=== PATIENT | female | born 1980 | race Caucasian/White ===

== ENCOUNTER 2019-04-07 06:52 | Day surgery (SDC) | payer SELFPAY ==
[2019-04-06 11:43] VITALS: BMI 30.9
--- NOTE | 2019-04-06 12:06 | P.ANES_ITS ---
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 \zacarias 1 month, changed cholesterol stress test 12/11 negative GI: GI: GERD Comments: well controlled Metabolic: Metabolic: Thyroid Anesthetic Plan: ASA status: II PFS Anesthesia PFSH: Medical History (Updated 04/04/19 @ 18:42 by Rex Ramirez MD) Bipolar disorder (Acute) Chronic obstructive pulmonary disease (Acute) Coronary artery disease (Acute) Patient had RI with stent placement in 02/2017 Hyperlipidemia (Acute) Hypertension (Acute) Ischemic cardiomyopathy (Acute) Nondiabetic gastroparesis (Acute) Surgical History (Updated 04/04/19 @ 18:13 by Rex Ramirez MD) S/P chest tube placement (Acute 09/08/08) Diagnoses: Right primary spontaneous pneumothorax. Performed by Dr. Patel at [facility] in [place], [place] S/P cholecystectomy (Acute ~02/2004) S/P dilation and curettage (Acute 12/16/01) Treatment of miscarriage in second trimester. Performed by Dr. Rex Ramirez at [facility] and [place], [place] S/P tonsillectomy and adenoidectomy (Acute ~1994) Age 15 S/P tubal ligation (Acute 04/12/15) Hysteroscopic sterilization with Essure. Performed by Dr. Rex Ramirez [facility] in [place], [place] Social History (Updated 04/04/19 @ 18:15 by Rex Ramirez MD) Smoking and tobacco status: current every day smoker cigarettes Packs smoked per day: 1.5 [ Other cigarette details: Most smoked 2 ppd. Started age 16 ] Quit status (tobacco): not considering quitting Second hand smoke exposure: Yes Alcohol intake: never Substance/Drug Use: current Substance/Drug use frequency: few times a week Substance/Drug use type: Marijuana Other substance/drug use details: 1-2 times weekly Desire information about substance/drug rehabilitation?: No Counseling given: No Female Reproductive History: Para: 2 (0020) Spontaneous abortions: Yes Data Anesthesia Cardiac Studies: No Data to Display
[2019-04-07] VITALS (8 sets, daily range): BP systolic 107–128; BP diastolic 67–83; PULSE 54–80; RESP 10–18; TEMP 36.2–36.6; O2SAT 97–100
[2019-04-07] MEDS: sodium chloride 0.9% 1,000 ML 30 ML IV (07:43)
[2019-04-07] MEDS: ketorolac 30 mg/mL INJ IVP (07:47)
--- NOTE | 2019-04-07 08:55 | P.HPUD_ITS ---
H&P update H&P Update: DATE OF SURGERY/PROCEDURE: 04/07/19 DATE H&P PERFORMED: 11/11 H&P UPDATE INFORMATION: H&P completed within last 30 days, No changes to prior documentation and H&P is in [facility] on date indicated PREOP DIAGNOSIS: Vaginal Intraepithelial Neoplasia 2 PLANNED PROCEDURE: Operation Date: 04/07/19 08:25 Proposed Procedures p Laser Ablation/of vagina(Not Applicable) - Rex Ramirez MD Full H&P Medications/Allergies: Current Medications: Current Medications Generic Name Dose Route Start Last Admin Trade Name Freq PRN Reason Stop Dose Admin Sodium Chloride 1,000 mls @ 30 ml s/hr 04/07/19 07:15 04/07/19 07:43 Sodium Chloride 0.9% IV 04/08/19 07:14 30 mls/hr .Q24H FELIPE Administration Perinent History: Medical/Surgical History: Medical History (Updated 04/04/19 @ 18:42 by Rex Ramirez MD) Bipolar disorder (Acute) Chronic obstructive pulmonary disease (Acute) Coronary artery disease (Acute) Patient had GA with stent placement in 02/2017 Hyperlipidemia (Acute) Hypertension (Acute) Ischemic cardiomyopathy (Acute) Nondiabetic gastroparesis (Acute) Family History: Family History (Updated 03/20/19 @ 15:08 by Heike Cronin LPN) Grandmother Breast cancer Stroke Mother Heart disease Hypertension Diabetes Father Hypertension Social History: Social History Smoking and tobacco status: current every day smoker cigarettes Packs smoked per day: 1.5 [ Other cigarette details: Most smoked 2 ppd. Started age 16 ] Quit status (tobacco): not considering quitting Second hand smoke exposure: Yes Alcohol intake: never Desire information about substance/drug rehabilitation?: No Counseling given: No
--- NOTE | 2019-04-07 09:38 | SUR.OPER ---
lugol's solution [address] Ramirez Lot: [id number] EXP:01/11 acidic acid 10 ml used EXP: 06/21/19
--- NOTE | 2019-04-07 10:06 | P.OP_ITS ---
Operative Report Date of procedure: 04/07/19 Preop Diagnosis: Vaginal intraepithelial neoplasia 2 (VaIN 2) Post-op diagnosis: same Procedure Done: Colposcopy of the vagina with CO2 laser ablation (extensive) of the upper vagina Specimens removed/disposition: None Surgeon: Rex Ramirez Anesthesia: general Estimated blood loss (mL): 0 Complications: None Findings: Multiple genital warts and vaginal lesions of the upper vaginal sidewalls and fornices of the cervix noted. These ranged in size from 2 mm up to approximately 1 cm in diameter. No cervical lesions noted. Condition: stable Disposition: other (home) Procedure: DATE OF SURGERY: 04/07/2019 DATE OF DICTATION: 04/07/2019 TIME OF DICTATION: 10: 08 PREOPERATIVE DIAGNOSIS: Vaginal intraepithelial neoplasia 2 (VaIN 2) POSTOPERATIVE DIAGNOSIS: Vaginal intraepithelial neoplasia 2 PROCEDURE: Colposcopy of the vagina with CO2 laser ablation (extensive) of the upper vagina SURGEON: Rex Ramirez M.D. GENERAL UTILITY WORKER: None ANESTHESIA: General INDICATIONS: Patient is a 39-year-old 2, para 0-0-2-0 who is status post tubal ligation who had had a prior history of VaIN 2 which have been treated and 03/2018 by laser ablation. At her postoperative visit the area had healed well and there was no warts or lesions noted. She returned for a Pap smear on 01/16/2019 and during the Pap, was noted to have multiple growths of the upper vagina again. Biopsy of 1 of these showed VaIN 2 again. As a result, she is presenting for laser ablation again. PROCEDURE: Patient was taken to the operating room where general anesthesia was obtained. She was positioned in a dorsal supine position with legs in Hector style stirrups. Sequential compression boots were placed prior to starting the case. Patient voided prior to coming to the operating room. Patient was draped with wet towels. Non-reflective laser instruments were used. Speculum was placed in the vagina and acetic acid applied to the upper vagina. Multiple wartlike growths were noted around the upper vagina, mainly located on the left and right sides of the upper vagina and fornices. These extended down the left side of the vagina as well. The largest lesion was approximately 1 cm in diameter with multiple smaller lesions noted. Lugol's solution was also applied further delineating other small lesions. No lower vaginal lesions noted. Using the CO2 laser, with settings between between 4 and 5 W continuous setting, the lesions were ablated throughout the upper vagina. This took approximately 20 minutes of treatment to completely ablate all of the lesions of the upper vagina. Patient tolerated well. ESTIMATED BLOOD LOSS: None INTRAVENOUS FLUIDS: See anesthesia record DRAINS: None SPECIMENS: None COMPLICATIONS: None FINDINGS: Multiple genital warts and vaginal lesions of the upper vaginal sidewalls and fornices of the cervix noted. These ranged in size from 2 mm up to approximately 1 cm in diameter. No cervical lesions noted. POSTOPERATIVE STATUS: The patient was transferred to the recovery room in satisfactory condition. DISPOSITION: Discharge to home when criteria was met. FOLLOWUP APPOINTMENT: Followup appointment is scheduled in my office on 04/23/2019. MEDICATIONS: Patient received prescriptions for: Metronidazole 500 mg, 2 tablets today and 2 tablets tomorrow morning. May resume normal home medications.
--- NOTE | 2019-04-07 10:10 | SUR.PHASEI ---
1008 PATIENT TO PACU AT THIS TIME VIA GURNEY FROM OR. RR EVEN AND UNLABORED. PATIENT NOTED TO BE SNORING, AIRWAY PATENT. PLACED ON SIMPLE MASK AT 8L, 100% SPO2.
--- NOTE | 2019-04-07 10:38 | SUR.PHASEI ---
1033 PATIENT TO OPS VIA GURNEY FROM PACU. PATIENT A/OX3. RR EVEN AND UNLABORED. RATES PAIN 4/10, ABDOMINAL CRAMPING.
[2019-04-07] MEDS: TRAMadol 50 mg Tablet PO (11:02)
--- NOTE | 2019-04-07 14:48 | ANE.PACU ---
 Inpatient post-anesthesia follow up: Airway intact: Yes Vital signs: Temperature 97.4 F Pulse Rate [Left] 63 Pulse Rate [Right Radial] 71 Respiratory Rate 18 Blood Pressure [Le ft Arm] 120/67 Pulse Oximetry 97 Oxygen Delivery Me thod Room Air Oxygen Flow Rate 8 Fraction of Inspir ed Oxygen Hydration adequate: Yes Nausea and vomiting: No Mental status: Baseline
== END 2019-04-07 11:29 | disposition home or self-care (01) ==
PROVIDERS: Family Provider Family Medicine; PCP Family Medicine; Visit Provider Obstetrics & Gynecology
PROC: (CPT 57065; principal; 2019-04-07 08:20)
DX: N90.1 Moderate vulvar dysplasia (principal); J44.9 Chronic obstructive pulmonary disease, unspecified; I25.10 Atherosclerotic heart disease of native coronary artery without angina pectoris; I25.2 Old myocardial infarction; Z95.5 Presence of coronary angioplasty implant and graft; I10 Essential (primary) hypertension; Z80.3 Family history of malignant neoplasm of breast; Z82.3 Family history of stroke; Z82.49 Family history of ischemic heart disease and other diseases of the circulatory system; Z83.3 Family history of diabetes mellitus; F17.210 Nicotine dependence, cigarettes, uncomplicated
CPT/HCPCS: 57065; 12345; 96374; J1100; J1885; J2001; J2250; J2405; J2704; J3010; J7030

== ENCOUNTER → 2019-05-21 14:51 | Outpatient (BNVA) | payer SELFPAY | PROVIDERS: Family Provider Family Medicine; PCP Family Medicine; Visit Provider Obstetrics & Gynecology | DX: R39.9 Unspecified symptoms and signs involving the genitourinary system (principal); R30.0 Dysuria | CPT/HCPCS: 81003; 87086 ==

== ENCOUNTER 2019-07-27 14:40 | Outpatient (CLI) | payer SELFPAY ==
[2019-07-27 15:13] LABS: Basophils # 0.1 10^3/uL (0.0-0.1); Basophils % 0.6 %; Eosinophils # 0.1 10^3/uL (0.0-0.8); Eosinophils % 0.6 %; Hematocrit 44.1 % (37.0-47.0); Hemoglobin 14.9 g/dL (11.5-15.3); Lymphocytes # 2.6 10^3/uL (0.8-4.8); Lymphocytes % 26.5 %; Mean Corpuscular HGB Conc 33.8 g/dL (30.0-36.0); Mean Corpuscular Volume 88.7 fL (81-99); Mean Platelet Volume 10.1 fL (7.4-10.4); Monocytes % 10.1 %; Nucleated Red Blood Cells % 0 %; Platelet Count 255 10^3/cmm (130-400); Red Blood Count 4.97 10^6/uL (4.1-5.3); Red Cell Distribution Width 11.7 % (12.1-15.1); White Blood Count 9.6 10^3/uL (4.0-10.0)
[2019-07-27 19:11] LABS: Alanine Aminotransferase < 5 U/L (0-33); Albumin Level 4.3 g/dL (3.5-5.2); Alkaline Phosphatase 83 IU/L (35-105); Anion Gap 16.3 (5-19); Aspartate Amino Transferase 11 U/L (0-32); Blood Urea Nitrogen 4 mg/dL (6-20); Calcium 9.7 mg/dL (8.5-10.5); Carbon Dioxide 21 mmol/L (22-29); Chloride 103 mmol/L (98-107); Cholesterol 180 mg/dL (0-200); Globulin 3.2 g/dL (1.3-4.6); Glomerular Filtration Rate 80.3 mL/min (90-130); Glucose 121 mg/dL (65-115); HDL Cholesterol 36 mg/dL (60-100); LDL Cholesterol Calculated 117 mg/dL (50-129); LDL HDL Ratio 3.25 RATIO (0.00-3.22); Osmolality Calculated 281 mOsm/kg (285-295); Potassium 3.3 mmol/L (3.5-5.1); Sodium 137 mmol/L (136-145); Thyroid Stimulating Hormone 1.48 uIU/mL (0.27-4.20); Total Bilirubin 0.3 mg/dL (0.15-1.2); Total Protein 7.5 g/dL (6.6-8.7); Triglycerides 134 mg/dL (0-150)
== END 2019-07-27 14:41 | disposition home or self-care (01) ==
LOC: LAB 14:42
PROVIDERS: Family Provider Family Medicine; PCP Family Medicine; Visit Provider Family Medicine
DX: I25.10 Atherosclerotic heart disease of native coronary artery without angina pectoris (principal); I10 Essential (primary) hypertension; D75.1 Secondary polycythemia
CPT/HCPCS: 36415; 80053; 80061; 84443; 85025

== ENCOUNTER → 2020-01-29 09:13 | Outpatient (BNVA) | payer SELFPAY | PROVIDERS: PCP Family Medicine; Visit Provider Obstetrics & Gynecology | DX: N89.1 Moderate vaginal dysplasia (principal) | CPT/HCPCS: 87624; 88175 ==

== ENCOUNTER → 2020-04-11 12:51 | Outpatient (BNVA) | payer SELFPAY | PROVIDERS: PCP Family Medicine; Referring Provider Internal Medicine Cardiovascular Disease; Visit Provider Internal Medicine | DX: E04.1 Nontoxic single thyroid nodule (principal); R00.2 Palpitations; R13.10 Dysphagia, unspecified | CPT/HCPCS: 99204 ==

== ENCOUNTER → 2020-09-16 08:10 | Outpatient (BNVA) | payer SELFPAY | PROVIDERS: PCP Family Medicine; Visit Provider Obstetrics & Gynecology | DX: R31.9 Hematuria, unspecified (principal); N76.0 Acute vaginitis; B35.6 Tinea cruris | CPT/HCPCS: 81000; 87491; 87591; 87661 ==

== ENCOUNTER → 2021-01-30 14:15 | Outpatient (BNVA) | payer MEDICAID, SELFPAY | PROVIDERS: PCP Family Medicine; Visit Provider Obstetrics & Gynecology | DX: Z12.4 Encounter for screening for malignant neoplasm of cervix (principal); B97.7 Papillomavirus as the cause of diseases classified elsewhere; R63.5 Abnormal weight gain | CPT/HCPCS: 83001; 84443; 87624 ==

== ENCOUNTER 2021-06-08 14:44 | Outpatient (CLI) | payer BC, SELFPAY ==
--- NOTE | 2021-06-08 14:54 | USCV_ITS ---
Lisa Fernández Age: 41 Gender: F : 1980 Exam Date: 06/08/2021 15:05 Ordering Phys: Devon Lynn XX Technologist: Shelby Montoya [place] [facility] [place]: H/O [place] WITH 1 STENT. BP: 115 / 75 HR: 71 Rhythm: Sinus Technical Quality: Adequate MEASUREMENTS (Male / Female) Normal Values 2D ECHO LV Diastolic Diameter PLAX 3.5 cm 4.2 - 5.9 / 3.9 - 5.3 cm LV Systolic Diameter PLAX 2.9 cm LV Chamber Size 3.0 cm IVS Diastolic Thickness 0.9 cm 0.6 - 1.0 / 0.6 - 0.9 cm IVS Systolic Thickness 1.4 cm LVPW Diastolic Thickness 1.2 cm 0.6 - 1.0 / 0.6 - 0.9 cm LVPW Systolic Thickness 1.4 cm RV Chamber Size 2.5 cm LVOT Diameter 2.0 cm LV Ejection Fraction 2D Teich 40.1 % LV Ejection Fraction MOD 2C 63.0 % LV Ejection Fraction 2C AL 63.3 % LA Diameter 2.0 cm LA Width 2.2 cm LA Height 3.4 cm RA Width 2.9 cm RA Height 3.1 cm Aorta at Sinotubular Diameter 2.8 cm M-MODE Aortic Annulus Diameter 1.6 cm LA Ao Ratio MM 0.6 MV E Point Septal Separation 0.4 cm DOPPLER AV Peak Velocity 104.0 cm/s LVOT Peak Velocity 89.0 cm/s AV Area Cont Eq vti 3.0 cm squared AV Area Cont Eq pk 2.7 cm squared MV Area PHT 4.4 cm squared Mitral E to A Ratio 1.6 MV E' Velocity 62.5 cm/s Mitral E to MV E' Ratio 8.9 Mitral E to LV E' Lateral Ratio 8.6 Mitral E to LV E' Septal Ratio 9.3 TR Peak Velocity 196.4 cm/s TR Peak Gradient 15.4 mmHg TR Mean Velocity 136.0 cm/s TR Mean Gradient 8.9 mmHg TR Velocity Time Integral 40.5 cm TV Peak E Velocity 67.0 cm/s PV Peak Velocity 65.0 cm/s RV Acceleration Time 0.2 s RV Ejection Time 0.4 s RV AcT/ET 0.5 FINDINGS Left Ventricle Normal left ventricular size. LV systolic function is normal with EF of 50-55%. No regional wall motion abnormalities. Normal diastolic function Right Ventricle The right ventricle is normal in size and function. Right Atrium The right atrium is normal in size. Left Atrium The left atrium is normal in size. Mitral Valve Structurally normal mitral valve without significant stenosis or prolapse. There is no mitral regurgitation. Aortic Valve Structurally normal aortic valve without significant sclerosis or stenosis. There is no aortic regurgitation. Tricuspid Valve Structurally normal tricuspid valve without significant stenosis or regurgitation. Insufficient TR jet to calculate RVSP Pulmonic Valve Not well visualized Pericardium Normal pericardium without effusion. Aorta Normal ascending aorta dimension. CONCLUSIONS LV systolic function is normal with EF of 50-55% Normal diastolic function No significant valvular heart disease Compared to prior echocardiogram from 03/11/2017, LV systolic function has improved and EF is 50-55% now Darron Greenwood MD (Electronically Signed) Final Date: 20 June 2021 12:37 S
== END 2021-06-08 14:45 | disposition home or self-care (01) ==
PROVIDERS: PCP Family Medicine; Visit Provider Family Medicine
DX: I25.2 Old myocardial infarction (principal); I25.118 Atherosclerotic heart disease of native coronary artery with other forms of angina pectoris
CPT/HCPCS: 93306

== ENCOUNTER → 2021-06-15 13:56 | Outpatient (BNVA) | payer BC, SELFPAY | PROVIDERS: PCP Family Medicine; Visit Provider Internal Medicine | DX: E04.1 Nontoxic single thyroid nodule (principal); R13.10 Dysphagia, unspecified; R00.2 Palpitations | CPT/HCPCS: 99214 ==

== ENCOUNTER → 2021-08-16 13:35 | Outpatient (BNVA) | payer BC, MEDICAID, SELFPAY | PROVIDERS: PCP Family Medicine; Visit Provider Internal Medicine | DX: E04.1 Nontoxic single thyroid nodule (principal); J38.7 Other diseases of larynx; R13.10 Dysphagia, unspecified; R00.2 Palpitations; R09.82 Postnasal drip; F17.210 Nicotine dependence, cigarettes, uncomplicated | CPT/HCPCS: 99214 ==

== ENCOUNTER → 2021-08-29 10:59 | Outpatient (BNVA) | payer BC, MEDICAID, SELFPAY | PROVIDERS: PCP Family Medicine; Visit Provider Otolaryngology | DX: R13.10 Dysphagia, unspecified (principal); J34.2 Deviated nasal septum; M26.623 Arthralgia of bilateral temporomandibular joint; E04.1 Nontoxic single thyroid nodule; F17.210 Nicotine dependence, cigarettes, uncomplicated | CPT/HCPCS: 31575; 99204 ==

== ENCOUNTER 2021-09-28 09:17 | Outpatient (CLI) | payer BC, MEDICAID, SELFPAY ==
--- NOTE | 2021-09-28 08:45 | US_ITS ---
WS: [id number] THYROID ULTRASOUND (TI-RADS CRITERIA) History: Follow-up nodule. Comparison: 03/09/2014 Technique: Ultrasound examination of the thyroid and adjacent soft tissues is performed. FINDINGS: Right lobe: 4.0 cm x 1.6 cm x 1.4 cm. Volume: 4.8 cm3. Normal size gland and echotexture. Again noted is a previous the described nodule in the mid lateral gland. See below. Lymph nodes: None. NODULE: 1 Size: 0.8 x 0.6 x 1.1 cm Location: Anterior mid lateral Composition: Mixed cystic and solid (1) Echogenicity: Hypoechoic (2) Shape: Not taller than wide (0) Margins: Smooth (0) Echogenic foci: None (0) ACR TI-RADS total points: 3 Left lobe: 4.4 cm x 1.4 cm x 1.1 cm. Volume: 3.5 cm3. Normal size and echotexture. No significant or dominant nodules are present. Lymph nodes: None. Isthmus: 0.2 cm. US/US thyroid 70148 Impression: TR3 Recommendation:This nodule has been present since 2013 with only slight increas e in size. As per the ACR TI-RADS recommendations no additional imaging is thou ght necessary.
== END 2021-09-28 09:18 | disposition home or self-care (01) ==
PROVIDERS: PCP Family Medicine; Visit Provider Internal Medicine
DX: R13.10 Dysphagia, unspecified (principal); R00.2 Palpitations; E04.1 Nontoxic single thyroid nodule
CPT/HCPCS: 76536

== ENCOUNTER → 2021-10-16 13:59 | Outpatient (BNVA) | payer BC, MEDICAID, SELFPAY | PROVIDERS: PCP Family Medicine; Visit Provider Internal Medicine | DX: E04.1 Nontoxic single thyroid nodule (principal); R00.2 Palpitations; R13.10 Dysphagia, unspecified; J38.7 Other diseases of larynx; R09.82 Postnasal drip; F17.210 Nicotine dependence, cigarettes, uncomplicated | CPT/HCPCS: 99214 ==

== ENCOUNTER 2022-04-27 08:55 | Outpatient (CLI) | payer BC, MEDICAID, SELFPAY ==
[2022-04-27 09:30] VITALS: BMI 35.4
--- NOTE | 2022-04-27 09:53 | NMCV_ITS ---
NM [place] perf SPECT r/s* [id number] Lisa Fernández Age: 42 Gender: F : 1980 Exam Date: 04/27/2022 09:53 Ordering Phys: Darron Greenwood M.D ([email or web address]) Technologist: ANAND Almaraz Exam Location: [facility] Indications: CHEST PAIN STRESS TEST Please see separate stress test report in [facility] for full findings IMAGE PROTOCOL Rest/Stress 1 Lexiscan Day Radiopharmaceutical Dose (mCi) Administration Site Administered by Rest: Tc-99m 10.7 IV ANAND Gonzales Sestamibi Stress:Tc-99m 32.6 IV ANAND Gonzales Sestamibi Rest: 27-Apr-2022 60 Discovery 630 Stress: 27-Apr-2022 30 Discovery 630 0.4mg Lexiscan. Images obtained in supine and prone position. SPECT RESULTS Technical Quality: Excellent Raw Data Analysis: Normal Image Corrections: No attenuation or motion correction applied Summed Stress Score: 0 Summed Rest Score: 0 Summed Difference Score: 0 PERFUSION FINDINGS SPECT images demonstrate homogeneous tracer distribution throughout the myocardium. FUNCTIONAL RESULTS (calculated via Gated SPECT) Stress Image LV EF (%): 85 Stress EDV (mL):72 TID: 1.06 Stress ESV (mL):11 FUNCTIONAL FINDINGS: There is normal left ventricular systolic function. IMPRESSIONS 1. Normal myocardial perfusion imaging with no evidence of ischemia. 2. LV systolic function is normal Darron Greenwood MD (Electronically Signed) Final Date: 28 April 2022 10:21 S
--- NOTE | 2022-04-27 09:53 | ECG_ITS ---
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 Interpretive Statements NAME OF STUDY: LEXISCAN SESTAMIBI STRESS TEST INDICATION: [Chest Pain sob, ] Procedure: At the baseline, the blood pressure was 119/85 mmHg with a heart rate of 91 bpm. The electrocardiogram showed normal sinus rhythm, normal axis with normal ST and T's. The Lexiscan was infused over a period of 20 seconds. A total of 0.4 mg of Lexiscan was infused. The stress phase was continued for a total of 5 minutes. Heart rate was at the end of stress phase was 102 bpm and a blood pressure of 112/87 mmHg. The EKG at the peak infusion revealed normal sinus rhythm with no significant ST-T wave changes. Sestamibi was injected 20 seconds after the Lexiscan infusion. Blood pressure at the end of recovery phase was 137/87 mmHg with a heart rate of 96 bpm. Conclusion: 1. Normal EKG response to Lexiscan infusion 2. No Lexiscan induced chest pain or cardiac arrhythmia. 3. Normal blood pressure and heart rate response. 4. Sestamibi/sestamibi perfusion scan pending; see separate report. Electronically Signed On 05-19-2022 22:58:58 SIZER MACHINE by Darron Greenwood M.D. [id number]
[2022-04-27] MEDS: regadenoson 0.4 Mg/5 ml Syringe IVP (11:26)
[2022-04-27 11:37] VITALS: BP 137/87; PULSE 90
== END 2022-04-27 08:56 | disposition home or self-care (01) ==
PROVIDERS: PCP Family Medicine; Visit Provider Internal Medicine
DX: R07.9 Chest pain, unspecified (principal); R06.02 Shortness of breath
CPT/HCPCS: 36415; 78452; 93017; 96374; A9500; J2785

== ENCOUNTER 2022-06-27 08:54 | Outpatient (CLI) | payer BC, MEDICAID, SELFPAY ==
--- NOTE | 2022-06-27 09:05 | US_ITS ---
WS: [id number] ULTRASOUND THYROID FNA CLINICAL INFORMATION: E04.1 - Nontoxic single thyroid nodule TECHNIQUE: Ultrasound-guided FNA FINDINGS: The procedure including risks, benefits, and complications were discussed with the patient who agreed to proceed. Timeout was performed. Using sterile technique patient was prepped and draped in usual sterile fashion. After 1% lidocaine, using ultrasound guidance, a 25-gauge needle was advanc ed into the RIGHT thyroid nodule. 4 passes were made with active aspiration. Pathology was present fo r slide preparation. No immediate complications. Patient remained in the ultrasound suite 10 minutes postprocedure with intermittent ultrasound to ens ure no hematoma. No hematoma 10 minutes postprocedure. US/US biopsy/FNA thyroid [id number] IMPRESSION: 1. Uncomplicated ultrasound-guided thyroid FNA 2. Cytology is pending.
== END 2022-06-27 08:55 | disposition home or self-care (01) ==
LOC: RAD 08:57
PROVIDERS: PCP Family Medicine; Visit Provider Internal Medicine
DX: E04.1 Nontoxic single thyroid nodule (principal); R13.10 Dysphagia, unspecified; J38.7 Other diseases of larynx; R49.0 Dysphonia
CPT/HCPCS: 10005; 88173

== ENCOUNTER 2022-09-18 14:25 | Outpatient (CLI) | payer BC, MEDICAID, SELFPAY ==
--- NOTE | 2022-09-18 14:31 | MM_ITS ---
WS: [id number] BILATERAL 3D TOMOSYNTHESIS DIGITAL SCREENING MAMMOGRAPHY WITH CAD CLINICAL INFORMATION: Z12.31 - Encounter for screening mammogram for malignant ... HISTORY: Screening mammogram. No current complaints. COMPARISON: None. TECHNIQUE: Bilateral CC and MLO views. FINDINGS: Scattered fibroglandular densities bilaterally. No suspicious focal mass, asymmetry, calcifications, or architectural distortion. No evidence of malignancy. MM/[place] [address] IMPRESSION: BI-RADS: 1-Negative FOLLOW UP: 1 Year Follow-up Recommend return to annual screening mammography.
== END 2022-09-18 14:26 | disposition home or self-care (01) ==
LOC: RAD 14:28
PROVIDERS: PCP Family Medicine; Visit Provider Family Medicine
DX: Z12.31 Encounter for screening mammogram for malignant neoplasm of breast (principal)
CPT/HCPCS: 77063; 77067

== ENCOUNTER 2023-02-26 12:27 | Outpatient (CLI) | payer BC, MEDICAID, SELFPAY ==
--- NOTE | 2023-02-26 12:45 | US_ITS ---
WS: [id number] THYROID ULTRASOUND HISTORY: Thyroid Nodule COMPARISON: 09/28/2021 Right lobe: 1.9 cm x 1.7 cm x 4.4 cm (w x ap x l). Volume: 7.3 cm3. Normal sized gland. There is a predominately cystic nodule in the mid gland measuring 8 x 7 x 10 mm. No echogenic foci. This nodule was previously biopsied. This nodule appears more cystic today. Left lobe: 1.3 cm x 1.3 cm x 3.8 cm (w x ap x l). Volume: 3.3 cm3. Normal size and echotexture. No significant or dominant nodules are present. Isthmus: 0.2 cm. IMPRESSION: 1. Benign-appearing cystic nodule mid RIGHT thyroid. This nodule has undergone prior biopsy and appea rs more cystic today. No additional imaging necessary as per the TI-RADS and ACR criteria. 2. Negative LEFT thyroid.
== END 2023-02-26 12:28 | disposition home or self-care (01) ==
PROVIDERS: PCP Family Medicine; Visit Provider Internal Medicine
DX: E04.1 Nontoxic single thyroid nodule (principal)
CPT/HCPCS: 76536

== ENCOUNTER 2023-04-19 09:16 | Outpatient (CLI) | payer BC, MEDICAID, SELFPAY ==
--- NOTE | 2023-04-19 10:00 | FL_ITS ---
WS: [id number] FL barium swallow modifd 26584 REASON FOR EXAM: Difficulty swallowing. FLUOROSCOPY TIME: 1min [id number] # OF SPOT FILMS: None FINDINGS: Examination was supervised by the speech therapy department. Patient was examined in the sitting upright lateral position. Swallowing of varying consistency barium was monitored fluoroscopically and video recorded. A detailed report of the swallowing will be rendered by the speech therapy department. IMPRESSION: Modified barium swallow as above.
== END 2023-04-19 09:17 | disposition home or self-care (01) ==
LOC: RAD 09:17
PROVIDERS: PCP Family Medicine; Visit Provider Internal Medicine
DX: R13.10 Dysphagia, unspecified (principal)
CPT/HCPCS: 74230; 92611

== ENCOUNTER 2023-06-18 10:03 | Outpatient (RCR) | payer BC, MEDICAID, SELFPAY | END 2023-06-23 23:59 | disposition home or self-care (01) | LOC: SST 10:03 | PROVIDERS: PCP Family Medicine; Visit Provider Internal Medicine | DX: R13.10 Dysphagia, unspecified (principal) | CPT/HCPCS: 92610 ==

== ENCOUNTER → 2023-10-18 10:21 | Outpatient (BNVA) | payer BC, MEDICAID, SELFPAY | PROVIDERS: PCP Family Medicine; Visit Provider Nurse Practitioner Women's Health | DX: Z12.4 Encounter for screening for malignant neoplasm of cervix | CPT/HCPCS: 87624 ==

== ENCOUNTER 2024-02-12 09:58 | Outpatient (CLI) | payer BC, MEDICAID, SELFPAY ==
--- NOTE | 2024-02-12 10:03 | FL_ITS ---
WS: [id number] Exam: FL barium swallow modifd [id number] Date/Time of Exam: 02/12/2024 10:12 AM Reason For Exam: Other dysphagia Fluoroscopy time: 2min [id number] minutes # of spot films: 0 Modified barium swallow test was performed in conjunction with the speech therapy service. Oropharyngeal phase of swallowing was grossly normal. The patient tolerated all consistencies of misa um mixture foodstuffs without penetration or aspiration. The patient swallowed a barium tablet withou t difficulty. FL/FL barium swallow modifd 10477 IMPRESSION: 1. Unremarkable modified barium swallow test. A separate report with recommendations will follow from the speech therapy serv ice.
== END 2024-02-12 09:59 | disposition home or self-care (01) ==
LOC: RAD 09:58
PROVIDERS: PCP Family Medicine; Visit Provider Family Medicine
DX: R13.10 Dysphagia, unspecified (principal)
CPT/HCPCS: 74230; 92611

== ENCOUNTER 2024-06-22 08:09 | Outpatient (CLI) | payer BC, MEDICAID, SELFPAY ==
[2024-06-22 08:46] VITALS: BMI 38.4
--- NOTE | 2024-06-22 08:48 | NMCV_ITS ---
NM [place] perf SPECT r/s* [id number] Lisa Fernández Age: 44 Gender: F : 1980 Exam Date: 06/22/2024 09:18 Ordering Phys: Chai Melendez MD ([email or web address]) Technologist: ANAND Brown Exam Location: [facility] Indications: cp STRESS TEST Please see separate stress test report in [facility] for full findings IMAGE PROTOCOL Rest/Stress 1 Lexiscan Day Radiopharmaceutical Dose (mCi) Administration Site Administered by Rest: Tc-99m 10.2 IV ANAND Brown Sestamibi Stress:Tc-99m 32.8 IV ANAND Gonzales Sestamibi Rest: 22-Jun-2024 60 Discovery 630 Stress: 22-Jun-2024 30 Discovery 630 0.4mg Lexiscan.images obtained in supine and prone position. SPECT RESULTS Technical Quality: Good Raw Data Analysis: Normal Image Corrections: No attenuation or motion correction applied Summed Stress Score: 0 Summed Rest Score: 1 Summed Difference Score: 0 PERFUSION FINDINGS SPECT images demonstrate homogeneous tracer distribution throughout the myocardium. FUNCTIONAL RESULTS (calculated via Gated SPECT) Stress Image LV EF (%): 82 Stress EDV (mL):62 TID: 1.14 Stress ESV (mL):11 FUNCTIONAL FINDINGS: There is normal left ventricular systolic function. IMPRESSIONS 1. Normal myocardial perfusion imaging with no evidence of ischemia 2. LV systolic function is normal Darron Greenwood MD (Electronically Signed) Final Date: 25 June 2024 18:07 S
--- NOTE | 2024-06-22 08:48 | ECG_ITS ---
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 The perfusion scan will be documented separately. DATA: Baseline heart rate was 88 beats per minute. Baseline blood pressure was 104/72 millimeters of mercury. Target heart rate was 177. Maximum heart rate achieved was 113. which was 63 % of the predicted target heart rate. Maximum blood pressure was 119/83 millimeters of mercury. The reason for ending the test was completion of the protocol. The patient did not experience any symptoms. ELECTROCARDIOGRAM: BASELINE: Sinus rhythm. Normal axis. Interventricular conduction delay, otherwise, no ST-T changes suggestive of ischemia noted. No arrhythmia noted. EXERCISE: After Lexiscan injection, no ST-T changes suggestive of ischemic noted. No arrhythmia noted. CONCLUSION: Please note due to baseline abnormality of the EKG specificity and sensitivity of the EKG portion of LexiScan MIBI stress test will be low 1. EKG not suggestive of ischemia 2. Lexiscan injection unremarkable. 3. Perfusion scan will be documented separately. Electronically Signed On 07-06-2024 20:18:44 CDT by CHAI MELENDEZ [email or web address] [email or web address]
[2024-06-22] MEDS: regadenoson 0.4 Mg/5 ml Syringe IVP (09:42)
[2024-06-22 09:53] VITALS: BP 119/71; PULSE 85
--- NOTE | 2024-06-22 13:30 | USCV_ITS ---
Lisa Fernández Age: 44 Gender: F : 1980 Exam Date: 06/22/2024 10:53 Ordering Phys: Chai Melendez MD ([email or web address]) Technologist: BIB Exam Location: [facility] Indication: SOB, CP BP: 120 / 80 HR: 78 Rhythm: Sinus Technical Quality: Adequate MEASUREMENTS (Male / Female) Normal Values 2D ECHO LV Diastolic Diameter PLAX 4.6 cm 4.2 - 5.9 / 3.9 - 5.3 cm IVS Diastolic Thickness 0.8 cm 0.6 - 1.0 / 0.6 - 0.9 cm IVS Systolic Thickness 1.4 cm LVPW Diastolic Thickness 0.9 cm 0.6 - 1.0 / 0.6 - 0.9 cm LVPW Systolic Thickness 0.9 cm LVOT Diameter 2.0 cm LV Ejection Fraction 2D Teich 52.0 % LV Ejection Fraction MOD 4C 64.3 % LV Ejection Fraction MOD 2C 62.8 % LV Ejection Fraction 2C AL 61.9 % LA Diameter 2.9 cm RA Systolic Volume 4C AL 10.5 ml RA Systolic Volume 4C MOD 10.4 ml LA Sys Volume AL 18.7 cm cubed LA Sys Volume Index AL 8.8 cm cubed/m squared Aorta at Sinotubular Diameter 2.7 cm IVC Diameter 1.8 cm M-MODE LA Ao Ratio MM 1.2 AV Cusp Separation MM 1.0 cm DOPPLER AV Peak Velocity 111.0 cm/s LVOT Peak Velocity 105.0 cm/s AV Area Cont Eq vti 2.7 cm squared AV Area Cont Eq pk 2.9 cm squared MV Peak Velocity 82.0 cm/s MV Area PHT 3.7 cm squared Mitral E to A Ratio 0.7 TR Peak Velocity 79.0 cm/s TR Peak Gradient 2.5 mmHg PV Peak Velocity 88.0 cm/s FINDINGS Left Ventricle Normal left ventricular size, systolic function and wall thickness, with no regional wall motion abnormalities. Left ventricular ejection fraction is estimated at 60%.Grade I/IV diastolic dysfunction (abnormal relaxation filling pattern), normal to mildly elevated filling pressures. Right Ventricle The right ventricle is normal in size and function. Right Atrium The right atrium is normal in size. Left Atrium The left atrium is normal in size. Mitral Valve Structurally normal mitral valve without significant stenosis or prolapse. There is no mitral regurgitation. Aortic Valve Moderate aortic valve calcification. No aortic valve stenosis. Trace aortic valve regurgitation. Tricuspid Valve Trace tricuspid valve regurgitation. Pulmonic Valve Structurally normal pulmonic valve without significant stenosis. There is no pulmonic regurgitation. Pericardium Normal pericardium without effusion. Aorta Normal ascending aorta dimension. IVC The inferior vena cava appears normal. CONCLUSIONS Normal left ventricular size, systolic function and wall thickness, with no regional wall motion abnormalities. Left ventricular ejection fraction is estimated at 60%.Grade I/IV diastolic dysfunction (abnormal relaxation filling pattern), normal to mildly elevated filling pressures. Moderate aortic valve calcification. No aortic valve stenosis. Trace aortic valve regurgitation. There is no pericardial effusion. Right atrial pressure is around 5 mm of mercury. Chai Melendez MD (Electronically Signed) Final Date: 03 July 2024 20:18 S
== END 2024-06-22 08:10 | disposition home or self-care (01) ==
PROVIDERS: PCP Family Medicine; Visit Provider Internal Medicine Cardiovascular Disease
DX: R07.9 Chest pain, unspecified (principal); R06.02 Shortness of breath; R93.1 Abnormal findings on diagnostic imaging of heart and coronary circulation; I35.8 Other nonrheumatic aortic valve disorders
CPT/HCPCS: 36415; 78452; 93017; 93306; 96374; A9500; J2785

== ENCOUNTER 2024-10-02 12:50 | Inpatient (IN) | payer BC, SELFPAY ==
[2024-10-02] VITALS (28 sets, daily range): BP systolic 120–150; BP diastolic 84–102; PULSE 76–108; RESP 16–24; TEMP 36.4–37; O2SAT 89–100; BMI 35.6
--- NOTE | 2024-10-02 12:56 | ECG_ITS ---
[facility] Date: 2024-10-02 Pat Name: Lisa Fernández Department: Room: Gender: Female Safety Consultant: : 1980 Requested By: Carmela Lau Order Number: [id number] Johnson MD: Lance Noyola M.D. Measurements Intervals [place] Rate: 89 P: 79 DC: 146 QRS: -34 QRSD: 85 T: 67 QT: 358 QTc: 436 Interpretive Statements SINUS RHYTHM POSSIBLE LEFT ATRIAL ENLARGEMENT [-0.1mV P-WAVE IN V1/V2] LEFT AXIS DEVIATION [QRS AXIS < -30] LOW QRS VOLTAGE IN PRECORDIAL LEADS [QRS DEFLECTION < 1.0 mV IN CHEST LEADS] PATTERN CONSISTENT WITH PULMONARY DISEASE POSSIBLE RIGHT VENTRICULAR CONDUCTION DELAY [RSR (QR) IN V1/V2] Compared to ECG 03/27/2018 08:27:07 Left-axis deviation now present Low QRS voltage now present T-wave abnormality no longer present Electronically Signed On 10-02-2024 15:05:46 CDT by Lance Noyola M.D. [id number]
--- OUTSIDE RECORDS SUMMARY | 2024-10-02 12:56 | XMS_ITS | Encounter Summary ---
Author Organization [facility] Address [address] [place] [address] Care Team Providers Care Vice President Underwriting Name Role Phone Devon Lynn MD Primary Care Provider [phone] [phone] Encounter Details Date Type Department Care Team (Late st Contact Info) Description 05/27/2012 Ancillary Orders [facility] Admitting [address] [place] [address] Josi Le, WILLA Jane [address] [place], [place] [address] Neck pain (Primary Dx); Left arm numbness Social History Tobacco Use Types Packs/Day Years Used Date Smoking Tobacco: Every Day Cigarettes 1.5 15 Smokeless Tobacco: Never Comments:1 1/2 PPD Alcohol Use Standard Drinks/Week Comments No 0 (1 standard drink = 0.6 oz pur e alcohol) very occ Comments No Sex and Gender Information Value Date Recorded Sex Assigned at Not on file Legal 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 Gender Identity Not on file Sexual Orientation Not on file Occupation Industry Job Start Date Job End Date Not on file Not on file Not on file Not on file documented as of this encounter Plan of Treatment Not on file documented as of this encounter Results * XR CERVICAL SPINE 3 VIEWS OR LESS (05/27/2012 4:01 PM GAS BURNER OPERATOR) Anatomical Region Laterality Modality Spine Computed Radiogr aphy 05/27/2012 3:43 PM GAS BURNER OPERATOR Narrative 05/28/2012 7:34 AM GAS BURNER OPERATOR PROCEDURE CERVICAL SPINE SERIES, 3 views 27 May 2012 DESCRIPTION AP, lateral, and open-mouth odontoid views of the cervical spine were obtained. There is straightening of cervical lordosis, otherwise alignment is maintained. Vertebral body and disc space heights appear normal. No significant degenerative change is seen. On three attempted open-mouth odontoid views, no loss of alignment is seen. The dens and C-1 are partially obscured by the occiput, although no fracture is seen. IMPRESSION negative for fracture of the cervical spine Procedure Note Nghia Olivas MD - 05/28/2012 PROCEDURE CERVICAL SPINE SERIES, 3 views 27 May 2012 DESCRIPTION AP, lateral, and open-mouth odontoid views of the cervical spine were obtained. There is straightening of cervical lordosis, otherwise alignment is maintained. Vertebral body and disc space heights appear normal. No significant degenerative change is seen. On three attempted open-mouth odontoid views, no loss of alignment is seen. The dens and C-1 are partially obscured by the occiput, although no fracture is seen. IMPRESSION negative for fracture of the cervical spine Deangelo Prater Sr., [employer] G ORDERABLES Final Result documented in this encounter Visit Diagnoses Diagnosis Neck pain- Primary Cervicalgia Left arm numbness Disturbance of skin sensation Neck pain Cervicalgia Left arm numbness Disturbance of skin sensation documented in this encounter Care Teams Vice President Underwriting Relationship Specialty Start Date End Date Devon Lynn MD [address] [address] [place] [phone] PCP - General Family Practice 08/01/17 documented as of this encounter
--- OUTSIDE RECORDS SUMMARY | 2024-10-02 12:56 | XMS_ITS | Encounter Summary ---
Author Organization [facility] Address [address] [place] [address] Care Team Providers Care Access Control Officer Name Role Phone Devon Lynn MD Primary Care Provider [phone] [phone] Encounter Details Date Type Department Care Team (Late st Contact Info) Description 03/16/2014 Ancillary Orders [facility] Services [place] [address] [place] [address] Social History Tobacco Use Types Packs/Day Years Used Date Smoking Tobacco: Every Day Cigarettes 1.5 15 Smokeless Tobacco: Never Comments:1 1/2 PPD Alcohol Use Standard Drinks/Week Comments No 0 (1 standard drink = 0.6 oz pur e alcohol) Comments No Sex and Gender Information Value Date Recorded Sex Assigned at Not on file Legal Sex Female 4:53 AM DOCTOR OF PODIATRY Gender Identity Not on file Sexual Orientation Not on file Occupation Industry Job Start Date Job End Date Not on file Not on file Not on file Not on file documented as of this encounter Plan of Treatment Not on file documented as of this encounter Procedures Procedure Name Priority Date/Time Associated Diagnosis Comments T4 FREE Routine 03/16/2014 1:21 PM DOCTOR OF PODIATRY documented in this encounter Results * T4 FREE (03/16/2014 1:21 PM DOCTOR OF PODIATRY) T4 FREE 1.50 0.70 - 1.80 ng/dL 03/16/2014 1:44 PM DOCTOR OF PODIATRY [facility] Blood 03/16/2014 1:21 PM DOCTOR OF PODIATRY 03/16/2014 1:21 PM DOCTOR OF PODIATRY us External Provider Mtnv CHEMISTRY ORDERABLES Jacqueline l Result [facility] CLIA # [id number] [address] [address] documented in this encounter Visit Diagnoses Not on filedocumented in this encounter Care Teams Access Control Officer Relationship Specialty Start Date End Date Devon Lynn MD [address] [id number] PCP - General Family Practice 08/01/17 documented as of this encounter
--- OUTSIDE RECORDS SUMMARY | 2024-10-02 12:56 | XMS_ITS | Encounter Summary ---
Author Organization [facility] Address [address] [place] [address] Care Team Providers Care Policy Change Clerks Supervisor Name Role Phone Devon Lynn MD Primary Care Provider [phone] [phone] Encounter Details Date Type Department Care Team (Latest Contact Info) Description 02/02/[address] 

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
--- OUTSIDE RECORDS SUMMARY | 2024-10-02 12:56 | XMS_ITS | Encounter Summary ---
Author Organization [facility] Address [address] [place] [address] Care Team Providers Care Public Health Veterinarian Name Role Phone Devon Lynn MD Primary Care Provider [phone] [phone] Reason for Referral * Outpatient Services (Routine) - Closed Specialty Diagnoses / Procedures Referred By Contreji t Referred To Contact Diagnoses Neck pain Left arm numbness Procedures MRI CERVICAL WO CONTRAST Deangelo Prater Sr., FNP [address] [place] [address] Phone: tel: fax: [facility] [address] [place] [address] Phone: tel: fax: Referral ID Status Reason Start Date Expiration Date Visits Re quested Visits Authorized [id number] Closed 05/30/2012 06/30/2013 1 1 T PROTECTION GUARD Encounter Details Date Type Department Care Team (Latest Contact Info) Description 05/30/2012 Ancillary Orders [facility] Centralized Scheduling [address] [facility] [address] [place] [address] Deangelo Prater Sr., FNP [address] [place], [place] [address] Neck pain (Primary Dx); Left arm numbness Social History Tobacco Use Types Packs/Day Years Used Date Smoking Tobacco: Every Day Cigarettes 1.5 15 Smokeless Tobacco: Never Comments:1 / PPD Alcohol Use Standard Drinks/Week Comments No 0 (1 standard drink = 0.6 oz pur e alcohol) very occ Comments No Sex and Gender Information Value Date Recorded Sex Assigned at Not on file Legal 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 FINDINGS: Cervical vertebral bodies demonstrate normal height and signal intensity. No evidence of neoplastic or metastatic disease in the cervical spine. Pre- and paraspinous soft tissues unremarkable. Craniocervical junction within normal limits. Cervical spinal cord demonstrates normal caliber and signal intensity. C2-3, C3-4, C4-5, C5-6, C6-7 and C7-T1 discs are unremarkable. No focal disc protrusion/herniation. Neural foramina patent. No central spinal canal stenosis. No posterior facet joint degenerative arthropathy evident CONCLUSION: Unremarkable MRI cervical spine. [email or web address] - uploaded from [employer] - Procedure Note Finn Ramirez MD - 06/05/2012 MRI CERVICAL SPINE: Reason for study: Neck pain. FINDINGS: Cervical vertebral bodies demonstrate normal height and signal intensity. No evidence of neoplastic or metastatic disease in the cervical spine. Pre- and paraspinous soft tissues unremarkable. Craniocervical junction within normal limits. Cervical spinal cord demonstrates normal caliber and signal intensity. C2-3, C3-4, C4-5, C5-6, C6-7 and C7-T1 discs are unremarkable. No focal disc protrusion/herniation. Neural foramina patent. No central spinal canal stenosis. No posterior facet joint degenerative arthropathy evident CONCLUSION: Unremarkable MRI cervical spine. [email or web address] - uploaded from [employer] - Transcriptions Sgf Scanning, Him - 06/25/2012 11:58 AM CDT us Deangelo Prater Sr., HOST/HOSTESS GROUND MR ORDERABLES E dited documented in this encounter Visit Diagnoses Diagnosis Neck pain- Primary Cervicalgia Left arm numbness Disturbance of skin sensation Neck pain Cervicalgia Left arm numbness Disturbance of skin sensation documented in this encounter Care Teams Public Health Veterinarian Relationship Specialty Start Date End Date Devon Lynn MD [address] [address] PCP - General Family Practice 08/01/17 documented as of this encounter
--- OUTSIDE RECORDS SUMMARY | 2024-10-02 12:56 | XMS_ITS | Encounter Summary ---
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
--- OUTSIDE RECORDS SUMMARY | 2024-10-02 12:56 | XMS_ITS | Encounter Summary ---
Author Organization [facility] Address [address] [place] [address] Care Team Providers Care Medical Surgery Nurse Name Role Phone Devon Lynn MD Primary Care Provider [phone] [phone] Encounter Details Date Type Department Care Team (Latest Contact Info) Description 10/24/1999 Outpatient Historical [facility] Medicine [place] [address] [address] Teo Hitchcock MD [address] [phone] Temporomandibular joint disorders, unspecified (Primary Dx) Social History Tobacco Use Types Packs/Day Years Used Date Smoking Tobacco: Never Assessed Comments Unknown Sex and Gender Information Value Date Recorded Sex Assigned at Not on file Legal Sex Female 4:53 AM RN DOCUMENT IMPROVEMENT SPECIALIST Gender Identity Not on file Sexual Orientation Not on file documented as of this encounter Plan of Treatment Not on file documented as of this encounter Visit Diagnoses Diagnosis Temporomandibular joint disorders, unspecified- Primary documented in this encounter Care Teams Medical Surgery Nurse Relationship Specialty Start Date End Date Devon Lynn MD [address] [address] PCP - General Family Practice 08/01/17 documented as of this encounter
--- OUTSIDE RECORDS SUMMARY | 2024-10-02 12:56 | XMS_ITS | Encounter Summary ---
Author Organization [facility] Address [address] [place] [address] Care Team Providers Care Casting Inspector Name Role Phone Devon Lynn MD Primary Care Provider [phone] [phone] Encounter Details Date Type Department Care Team (Latest Contact Info) Description 05/08/1999 Outpatient Historical [facility] Medicine [place] [address] [address] Teo Hitchcock MD [address] [phone] Acute pharyngitis (Primary Dx); Acute bronchitis Social History Tobacco Use Types Packs/Day Years Used Date Smoking Tobacco: Never Assessed Comments Unknown Sex and Gender Information Value Date Recorded Sex Assigned at Not on file Legal Sex Female 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
--- OUTSIDE RECORDS SUMMARY | 2024-10-02 12:56 | XMS_ITS | Encounter Summary ---
Author Organization [facility] Address [address] [place] [address] Care Team Providers Care Varnish Inspector Name Role Phone Devon Lynn MD Primary Care Provider [phone] [phone] Encounter Details Date Type Department Care Team (Late st Contact Info) Description 06/07/2011 Ancillary Orders [facility] [address] [place] [address] Josi Le, WILLA Jane [address] [place] [address] Cough; Chest pain Social History Tobacco Use Types Packs/Day Years Used Date Smoking Tobacco: Every Day Cigarettes Comments:1 1/2 PPD Alcohol Use Standard Drinks/Week Comments No 0 (1 standard drink = 0.6 oz pur e alcohol) very occ Comments No Sex and Gender Information Value Date Recorded Sex Assigned at Not on file Legal Sex Female 4:53 AM COOK ENCHILADA Gender Identity Not on file Sexual Orientation Not on file Occupation Industry Job Start Date Job End Date Not on file Not on file Not on file Not on file documented as of this encounter Plan of Treatment Not on file documented as of this encounter Results * XR CHEST PA AND LATERAL (06/07/2011 3:28 PM CDT) Anatomical Region Laterality Modality Chest Computed Radiogr aphy 06/07/2011 3:20 PM CDT Narrative 06/08/2011 8:29 AM CDT Upright PA and left lateral chest views show mild hyperinflation. No pulmonary infiltrate or atelectasis is seen and no pleural effusion is evident. Cardio mediastinal silhouette appears normal. IMPRESSION no acute infiltrate or interval change seen scents 03 November 1999 Procedure Note Nghia Olivas MD - 06/08/2011 Upright PA and left lateral chest views show mild hyperinflation. No pulmonary infiltrate or atelectasis is seen and no pleural effusion is evident. Cardio mediastinal silhouette appears normal. IMPRESSION no acute infiltrate or interval change seen scents 03 November 1999 us Deangelo Prater Sr., [facility] ORDERABLES Final Result documented in this encounter Visit Diagnoses Diagnosis Cough Chest pain Chest pain, unspecified Cough Chest pain Chest pain, unspecified documented in this encounter Care Teams Varnish Inspector Relationship Specialty Start Date End Date Devon Lynn MD [address] [phone] PCP - General Family Practice 08/01/17 documented as of this encounter
--- OUTSIDE RECORDS SUMMARY | 2024-10-02 12:56 | XMS_ITS | Encounter Summary ---
Author Organization [facility] Address [address] [place] [address] Care Team Providers Care Thermometer Production Worker Name Role Phone Devon yLnn MD Primary Care Provider + -[phone] Encounter Details Date Type Department Care Team (Late st Contact Info) Description 06/07/2011 Ancillary Orders [facility] [address] [place] [address] Josi Le, WILLA Jane [address] [place], [place] [id number] Cough; Chest pain Social History Tobacco Use Types Packs/Day Years Used Date Smoking Tobacco: Every Day Cigarettes Comments:1 1/2 PPD Alcohol Use Standard Drinks/Week Comments No 0 (1 standard drink = 0.6 oz pur e alcohol) very occ Comments No Sex and Gender Information Value Date Recorded Sex Assigned at Not on file Legal Sex Female 4:53 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
--- OUTSIDE RECORDS SUMMARY | 2024-10-02 12:56 | XMS_ITS | Encounter Summary ---
Author Organization [facility] Address [address] [place] [address] Care Team Providers Care Conference Center Coordinator Name Role Phone Devon Lynn MD Primary Care Provider [phone] [phone] Encounter Details Date Type Department Care Team (Latest Contact Info) Description 10/10/1999 Outpatient Historical [facility] Medicine [place] [address] [address] Luis Felipe Morales DO NO ADDRESS ON FILE Temporomandibular joint disorders, unspecified (Primary Dx); Other specified hypoglycemia; Pain in joint, ankle and foot Social History Tobacco Use Types Packs/Day Years Used Date Smoking Tobacco: Never Assessed Comments Unknown Sex and Gender Information Value Date Recorded Sex Assigned at Not on file Legal Sex Female 4:53 AM RECRUITING INTERN Gender Identity Not on file Sexual Orientation Not on file documented as of this encounter Plan of Treatment Not on file documented as of this encounter Visit Diagnoses Diagnosis Temporomandibular joint disorders, unspecified- Primary Other specified hypoglycemia Pain in joint, ankle and foot documented in this encounter Care Teams Conference Center Coordinator Relationship Specialty Start Date End Date Devon Lynn MD [address] [phone] PCP - General Family Practice 08/01/17 documented as of this encounter
--- NOTE | 2024-10-02 13:12 | W.ED.CHESTPA ---
HPI - Chest Pain General: Chief Complaint: Chest Pain Stated Complaint: chest pressure Time Seen by Provider: 10/02/24 13:03 History of Present Illness: 44-year-old female presents emergency room with complaints of chest pain radiating to her back. She woke with the pain today at around 10 AM. She had been having more low back pain recently had an MRI some arthritic changes. No recent trauma. She has no history of blood clots but she does have a history of coronary disease had previously had stents placed in 2017. Associated shortness of breath with exertion no nausea vomiting or diarrhea no diaphoresis. Associated symptoms: Deny abdominal pain, dyspnea or fever(s) Related Data Home Medications ?Medication ?Instructions ?Recorded ?Confirmed alprazolam 0.25 mg tablet 0.25 mg PO BID PRN Anxiety 04/01/19 09/23/24 baclofen 20 mg tablet 20 mg PO QID 04/01/19 09/23/24 pantoprazole 40 mg tablet,delayed 40 mg PO BID 04/01/19 09/23/24 release prochlorperazine maleate 10 mg 10 mg PO ONCE PRN Chest Pain 04/01/19 09/23/24 tablet (Compazine) tramadol 50 mg tablet 50 mg PO BID PRN Nausea 04/01/19 09/23/24 cyanocobalamin (vitamin B-12) 1,000 mcg PO DAILY 02/11/20 09/23/24 1,000 mcg capsule cholecalciferol (vitamin D3) 1,250 50,000 unit PO .q7days 04/11/20 09/23/24 mcg (50,000 unit) capsule aspirin 81 mg tablet,delayed 162 mg PO DAILY 09/13/20 09/23/24 release magnesium oxide 400 mg PO DAILY 09/13/20 09/23/24 pseudoephedrine HCl 30 mg tablet 30 mg PO BID 06/15/21 09/23/24 Previous Rx's ?Medication ?Instructions ?Recorded clarithromycin 250 mg tablet 250 mg PO DAILY #90 tabs 05/31/20 furosemide 20 mg tablet 20 mg PO QAM PRN edema #90 tabs 04/05/21 nitroglycerin 0.4 mg sublingual 0.4 mg sublingual Q5M PRN Chest 04/05/21 tablet (Nitrostat) Pain #25 tabs potassium chloride 20 mEq 20 meq PO DAILY PRN Take with 04/05/21 tablet,extended Lasix #90 tabs release(part/cryst) (Klor-Con M) metoprolol tartrate 25 mg tablet 12.5 mg (1/2 x 25 mg) PO BID #90 05/21/23 tabs isosorbide mononitrate 30 mg 30 mg PO DAILY #90 tabs 05/07/24 tablet,extended release 24 hr Allergies Allergy/AdvReac Type Severity Reaction Status Date / Time atorvastatin Allergy Unknown unknown Verified 09/23/24 08:17 doxycycline Allergy vomiting, Verified 09/23/24 08:17 abdominal pain hydromorphone (From Dilaudid) Allergy anaphylaxis Verified 09/23/24 08:17 meperidine (From Demerol) Allergy hives, Verified 09/23/24 08:17 itching metoclopramide (From Reglan) Allergy uncontrolled Verified 09/23/24 08:17 tongue movement rosuvastatin Allergy wheezing Verified 09/23/24 08:17 and horsness Review of Systems Const: Denies: fever(s) or chills Card: Reports: chest pain Resp: Denies: dyspnea GI: Denies: abdominal pain : Denies: dysuria, urinary frequency or urinary urgency Musc: Denies: neck pain or back pain Skin/Breast: Denies: rash PFSH ED PFSH: Medical History Palpitation Thyroid nodule 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 Ramirez Bipolar disorder Chronic obstructive pulmonary disease Coronary artery disease Patient had LA with stent placement in 02/2017 Hypertension Ischemic cardiomyopathy Nondiabetic gastroparesis Hyperlipidemia Surgical History History of vaginal surgery (04/01/18) CO2 laser ablation of VaIN 2. [place] [facility]. History of vaginal surgery (04/07/19) CO2 laser ablation (extensive) of VaIN 2. [place] Ramirez [place] [facility] S/P tubal ligation (04/12/15) Hysteroscopic sterilization with Essure. Performed by Dr. Rex Ramirez [facility] in [place], [place] S/P chest tube placement (09/08/08) Diagnoses: Right primary spontaneous pneumothorax. Performed by Dr. Patel at [facility] in [place], [place] S/P cholecystectomy (~02/2004) S/P dilation and curettage (12/16/01) Treatment of miscarriage in second trimester. Performed by Dr. Rex Ramirez at [facility] and [place], [place] S/P tonsillectomy and adenoidectomy (~1994) Age 15 Family History Grandmother Breast cancer Stroke Mother Heart disease Hypertension Diabetes Hyperlipidemia Thyroid disease Father Hypertension Denies family history of Colon cancer Ovarian cancer Clotting disorder Anesthesia complication Bleeding disorder Uterine cancer Social History Smoking and tobacco/nicotine status: current every day tobacco/nicotine user Female Reproductive History: Para: 2 (0020) Spontaneous abortions: Yes Physical Exam Const: GENERAL APPEARANCE: cooperative ORIENTATION/CONSCIOUSNESS: Yes awake, Yes oriented to person, Yes oriented to place and Yes oriented to time HENMT: COMMON NORMALS: normocephalic, atraumatic and hearing grossly normal bilaterally HEAD & SCALP: normocephalic and atraumatic Resp: COMMON NORMALS: normal respiratory effort, No retractions, No use of accessory muscles and clear to auscultation bilaterally AUSCULTATION: clear to auscultation bilaterally Cardio: COMMON NORMALS: regular rate, regular rhythm and No murmurs present (Cardio) RATE: regular rate RHYTHM: regular rhythm GI: COMMON NORMALS: Soft to palpation and No hepatosplenomegaly present AUSCULTATION: Yes normoactive bowel sounds PALPATION: Yes Soft to palpation, No Tenderness to palpation present (GI), No Guarding due to palpation present (GI) and Yes No hepatosplenomegaly present Extremity: COMMON NORMALS: normal to inspection, capillary refill normal, no clubbing, cyanosis or edema, no calf tenderness and no pedal edema Neuro: SENSORIUM/ORIENTATION: Yes oriented to person, Yes oriented to place and Yes oriented to time Skin: COMMON NORMALS: no rashes or lesions noted GENERAL SKIN EXAM: no rashes or lesions noted Course Vital Signs: Vital signs: Vital Signs Temperature 97.5 F L 10/02/24 12:52 Pulse Rate 81 10/02/24 15:28 Respiratory Rate 16 10/02/24 12:52 Blood Pressure 139/91 10/02/24 15:28 Pulse Oximetry 94 10/02/24 15:28 Oxygen Delivery Me thod Room Air 10/02/24 12:52 MDM - Chest Pain Medical Records CONCLUSIONS Normal left ventricular size, systolic function and wall thickness, with no regional wall motion abnormalities. Left ventricular ejection fraction is estimated at 60%.Grade I/IV diastolic dysfunction (abnormal relaxation filling pattern), normal to mildly elevated filling pressures. Moderate aortic valve calcification. No aortic valve stenosis. Trace aortic valve regurgitation. There is no pericardial effusion. Right atrial pressure is around 5 mm of mercury. Jaylin Melendez MD (Electronically Signed) Final Date: 03 July 2024 CONCLUSION: Please note due to baseline abnormality of the EKG specificity and sensitivity of the EKG portion of LexiScan MIBI stress test will be low 1. EKG not suggestive of ischemia 2. Lexiscan injection unremarkable. 3. Perfusion scan will be documented separately. Electronically Signed On 07-06-2024 20:18:44 CDT by JAYLIN MELENDEZ Dictated By: Jaylin Melendez MD 07/06/242019 Lab Data I reviewed the patient's lab results. 10/02/24 14:24 10/02/24 14:24 Radiology Impressions Chest X-Ray 10/02/24 14:03 IMPRESSION: 1. Negative chest. Laboratory Results WBC 9.84 10^3/uL (3.29-11.43) 10/02/24 14:24 RBC 5.40 10^6/uL (3.85-5.65) 10/02/24 14:24 Hgb 15.60 g/dL (11.27-16.99) 10/02/24 14:24 Hct 46.9 % (36-47) 10/02/24 14:24 MCV 86.9 fl (85-98) 10/02/24 14:24 MCH 28.9 pg (27-33) 10/02/24 14:24 MCHC 33.3 g/dL (30-55) 10/02/24 14:24 RDW 14.0 % (12.1-15.1) 10/02/24 14:24 Plt Count 259 10^3/cmm (157-399) 10/02/24 14:24 MPV 9.5 fL (7.4-10.4) 10/02/24 14:24 Neut % (Auto) 70.4 % 10/02/24 14:24 Lymph % (Auto) 18.7 % 10/02/24 14:24 Motley % (Auto) 8.4 % 10/02/24 14:24 Eos % (Auto) 1.5 % 10/02/24 14:24 Baso % (Auto) 0.6 % 10/02/24 14:24 Neut # (Auto) 6.92 10^3/uL (1.8-7.7) 10/02/24 14:24 Lymph # (Auto) 1.8 10^3/uL (0.8-4.8) 10/02/24 14:24 Motley # (Auto) 0.8 10^3/uL (0.2-0.9) 10/02/24 14:24 Eos # (Auto) 0.2 10^3/uL (0.0-0.8) 10/02/24 14:24 Baso # (Auto) 0.1 10^3/uL (0.0-0.1) 10/02/24 14:24 Nucleated RBC % (auto) 0 % 10/02/24 14:24 Nucleated RBCs # 0.0 /100WBC 10/02/24 14:24 Sodium 139 mmol/L (136-145) 10/02/24 14:24 Potassium 4.3 mmol/L (3.5-5.1) 10/02/24 14:24 Chloride 100 mmol/L (98-107) 10/02/24 14:24 Carbon Dioxide 24 mmol/L (22-29) 10/02/24 14:24 Anion Gap 19.3 (5-19) H 10/02/24 14:24 BUN 5 mg/dL (6-20) L 10/02/24 14:24 Creatinine 0.6 mg/dL (0.5-0.9) 10/02/24 14:24 GFR Calculation 109.1 mL/min (90-130) 10/02/24 14:24 Glucose 125 mg/dL (65-115) H 10/02/24 14:24 Calculated Osmolality 287 mOsm/kg (285-295) 10/02/24 14:24 Calcium 9.2 mg/dL (8.5-10.5) 10/02/24 14:24 Total Bilirubin 0.2 mg/dL (0.15-1.2) 10/02/24 14:24 AST 18 U/L (0-32) 10/02/24 14:24 ALT 10 U/L (0-33) 10/02/24 14:24 Alkaline Phosphatase 105 U/L (35-105) 10/02/24 14:24 Troponin T Baseline 67 ng/L (0-10) H 10/02/24 14:24 Troponin T 120 Minute 284.4 ng/L (0-10) H 10/02/24 16:12 Delta Troponin T 217.4 ABS# (0-10) H* 10/02/24 16:12 Total Protein 6.9 g/dL (6.6-8.7) 10/02/24 14:24 Albumin 4.1 g/dL (3.5-5.2) 10/02/24 14:24 Globulin 2.8 g/dL (1.3-4.6) 10/02/24 14:24 EKG Data EKG 1: Interpretation: October 02, 2024 EKG normal sinus rhythm rate of 89. Normal of 146. No acute ST changes noted. Discharge Plan Discharge Condition: Stable Prescriptions: No Action pantoprazole 40 mg tablet,delayed release (DR/EC) 40 mg PO BID baclofen 20 mg tablet 20 mg PO QID alprazolam 0.25 mg tablet 0.25 mg PO BID PRN (Reason: Anxiety) prochlorperazine maleate [Compazine] 10 mg tablet 10 mg PO ONCE PRN (Reason: Chest Pain) tramadol 50 mg tablet 50 mg PO BID PRN (Reason: Nausea) cholecalciferol (vitamin D3) 1,250 mcg (50,000 unit) capsule 50,000 unit PO .q7days Rx Instructions: weekly cyanocobalamin (vitamin B-12) 1,000 mcg capsule 1,000 mcg PO DAILY aspirin 81 mg tablet,delayed release (DR/EC) 162 mg PO DAILY magnesium oxide 400 mg magnesium capsule 400 mg PO DAILY furosemide 20 mg tablet 20 mg PO QAM PRN (Reason: edema) Qty: 90 3RF nitroglycerin [Nitrostat] 0.4 mg tablet, sublingual 0.4 mg SUBLINGUAL Q5M PRN (Reason: Chest Pain) Qty: 25 3RF potassium chloride [Klor-Con M20] 20 mEq tablet,ER particles/crystals 20 meq PO DAILY PRN (Reason: Take with Lasix) Qty: 90 3RF pseudoephedrine HCl 30 mg tablet 30 mg PO BID isosorbide mononitrate 30 mg tablet extended release 24 hr 30 mg PO DAILY Qty: 90 3RF clarithromycin 250 mg tablet 250 mg PO DAILY Qty: 90 3RF metoprolol tartrate 25 mg tablet 12.5 mg PO BID Qty: 90 0RF Rx Instructions: MUST MAKE APPOINTMENT AND BE SEEN FOR FURTHER REFILLS. Referrals: Devon Lynn [Primary Care Provider, Family Practice] Patient Instructions: Opioid Safety, Pain Management, Patient Portal & Susan Instructions Print Language: Ethiopian Coding Level of Care Code ED Virtual Office Assistant for Hayes Sahu
--- NOTE | 2024-10-02 14:03 | XR_ITS ---
WS: [id number] Exam: XR chest 1V portable [id number] Date/Time of Exam: 10/02/2024 2:05 PM Reason For Exam: Chest pain Comparison 04/17/2017. Lungs are fully expanded and clear. Normal cardiomediastinal silhouette. No pleural effusions. Unremarkable bony structures. XR/XR chest 1V portable [id number] IMPRESSION: 1. Negative chest.
[2024-10-02 14:29] LABS: Hematocrit 46.9 % (36-47); Hemoglobin 15.60 g/dL (11.27-16.99); Mean Corpuscular HGB Conc 33.3 g/dL (30-55); Mean Corpuscular Hemoglobin 28.9 pg (27-33); Mean Corpuscular Volume 86.9 fl (85-98); Nucleated Red Blood Cells % 0 %; Platelet Count 259 10^3/cmm (157-399); Red Blood Count 5.40 10^6/uL (3.85-5.65); White Blood Count 9.84 10^3/uL (3.29-11.43)
[2024-10-02 14:51] LABS: Alanine Aminotransferase 10 U/L (0-33); Albumin Level 4.1 g/dL (3.5-5.2); Alkaline Phosphatase 105 U/L (35-105); Blood Urea Nitrogen 5 mg/dL (6-20); Calcium 9.2 mg/dL (8.5-10.5); Carbon Dioxide 24 mmol/L (22-29); Chloride 100 mmol/L (98-107); Creatinine Clr Calc Pharmacy 129.6083; Globulin 2.8 g/dL (1.3-4.6); Glucose 125 mg/dL (65-115); Osmolality Calculated 287 mOsm/kg (285-295); Sodium 139 mmol/L (136-145); Total Protein 6.9 g/dL (6.6-8.7); Troponin(5th) Baseline 67 ng/L (0-10)
[2024-10-02 14:57] LABS: Anion Gap 19.3 (5-19); Aspartate Amino Transferase 18 U/L (0-32); Potassium 4.3 mmol/L (3.5-5.1)
[2024-10-02 16:42] LABS: Troponin 5 2HR 284.4 ng/L (0-10)
[2024-10-02 16:43] LABS: Troponin 5 2HR Delta 217.4 ABS# (0-10)
--- NOTE | 2024-10-02 16:43 | ECG_ITS ---
[facility]: 2024-10[facility]02 Pat Name: Lisa Fernández Department: Room: Gender: Female Claims Manager: : 1980 Requested By: Carmela Lau Order Number: [id number] Alex MD: Lance Noyola M.D. Measurements Intervals [place] Rate: 94 P: 117 [place]: 140 QRS: 234 QRSD: 86 T: 123 QT: 369 QTc: 463 Interpretive Statements SINUS RHYTHM ARM LEADS REVERSED [INVERTED P AND QRS IN I] Compared to ECG 10/02/2024 12:56:00 Poor R wave progression Left-axis deviation no longer present Electronically Signed On 10-07-2024 16:55:42 CDT by Lance Noyola M.D. [id number] [id number]
--- NOTE | 2024-10-02 16:50 | ECG_ITS ---
[facility]: 2024-10-02 Pat Name: Lisa Fernández Department: Room: Gender: Female Circulating Nurse: : 1980 Requested By: Carmela Lau Order Number: [id number] Alex MD: Lance Noyola M.D. Measurements Intervals [place] Rate: 94 P: 73 [place]: 138 QRS: -34 QRSD: 82 T: 71 QT: 358 QTc: 448 Interpretive Statements SINUS RHYTHM LEFT AXIS DEVIATION [QRS AXIS < -30] LOW QRS VOLTAGE IN PRECORDIAL LEADS [QRS DEFLECTION < 1.0 mV IN CHEST LEADS] ANTERIOR MYOCARDIAL INFARCTION , OF INDETERMINATE AGE [40+ ms Q WAVE AND/OR ST/T ABNORMALITY IN V3/V4] Compared to ECG 10/02/2024 16:43:16 Left-axis deviation now present Low QRS voltage now present Myocardial infarct finding now present Electronically Signed On 10-07-2024 16:53:34 CDT by Lance Noyola M.D. [id number]
[2024-10-02] MEDS: nitroglycerin 1 gm/inch oint Pkt 1 INCH TOPICAL (17:02)
[2024-10-02] MEDS: morphine 4 mg/mL SDV 1 mL 2 MG IVP (17:05)
--- NOTE | 2024-10-02 17:10 | P.HP_ITS ---
Providers/Chief Complaint 2 Primary Care Provider: Devon Lynn Chief Complaint: chest pressure History of Present Illness Lisa Fernández is a 44 year old female with past medical history of CAD, post PCI to LAD in 2017, hypertension, hyperlipidemia, bipolar disorder presents to the ER today because of chest pain which woke her up from her sleep today morning at around 10 AM. Patient states she has had a chronic back pain for which she is under evaluation by an orthopedic surgeon but today the pain was retrosternal radiating to bilateral shoulder blades and her back making her nauseous with an episode of vomiting. Patient states for last few weeks she has had daily chest pain in the evening for which she has required sublingual nitros but today the pain was not subsiding even with the nitro. She has had pain on exertion for last 3 to 4 days. In the ER she was found to have a delta troponin and was diagnosed of non-ST elevation IN. Cardiology was consulted patient was started on heparin drip and medicine team was consulted for further management. Review of Systems 2 General: Reports: 10 or more systems reviewed and unremarkable except in HPI and below Const: Denies: fever(s), chills, body aches, change in appetite, change in weight, malaise, night sweats, diaphoresis, change in sleep pattern, daytime sleepiness or snoring Eyes: Denies: change in vision, blurry vision, photophobia, eye discomfort or eye discharge ENMT: Denies: throat pain, enlarged tonsils, hoarseness, mouth pain, oral sores, dry mouth, tinnitus, nasal congestion or post nasal drip Card: Denies: chest pain, palpitations, irregular heart rhythm, edema, swelling of feet/ankles, lightheadedness, syncope, pre-syncope, dyspnea on exertion, orthopnea, leg pain with exertion or acrocyanosis Resp: Denies: dyspnea, productive cough, non-productive cough, wheezing, stridor, pain on inspiration, change in phlegm color, hemoptysis or chest congestion GI: Denies: abdominal pain, nausea, vomiting, hematemesis, coffee ground emesis, dysphagia, heartburn, diarrhea, constipation, bloating, GI cramping, change in bowel habits, pain on defecation, hematochezia or melena : Denies: flank pain, dysuria, urinary frequency, urinary urgency, urinary hesitancy, nocturia or hematuria Musc: Denies: neck pain, back pain, extremity pain, joint pain, joint swelling, joint redness, joint stiffness or limited range of motion Neuro: Denies: headache(s), numbness in extremities, weakness in extremities, sensory changes, lack of coordination, difficulty walking, frequent falls, dizziness, vertigo, confusion, Slurred speech present, difficulty communicating thoughts or seizure-like activity Psych: Denies: anxiety, depression, mood swings, panic attacks, hopelessness or irritability Endo: Denies: polyuria, polydipsia, tired all the time, cold intolerance, excessive sweating, flushing or heat intolerance Elkin/Lymph: Denies: easy bruising or easy bleeding All/Imm: Denies: tongue swelling, facial swelling or acute wheezing Medications/Allergies Home Medications ?Medication ?Instructions ?Recorded ?Confirmed ?Last Taken ?Type alprazolam 0.25 mg tablet 0.25 mg PO BID PRN Anxiety 0 04/01/19 09/23/24 04/07/19 06:00 History baclofen 20 mg tablet 20 mg PO QID 04/01/1904/06/19 20:00 History pantoprazole 40 mg tablet,delayed 40 mg PO BID 0 09/23/24 Unknown History release prochlorperazine maleate 10 mg 10 mg PO ONCE PRN Chest Pain 04/01/19 09/23/24 Unknown History tablet (Compazine) tramadol 50 mg tablet 50 mg PO BID PRN Nausea 11/1109/23/24 Unknown History cyanocobalamin (vitamin B-12) 1,000 mcg PO DAILY 02/1009/23/24 Unknown History 1,000 mcg capsule cholecalciferol (vitamin D3) 1,250 50,000 unit PO .q7d ays 04/11/20 09/23/24 Unknown History mcg (50,000 unit) capsule clarithromycin 250 mg tablet 250 mg PO DAILY #90 tabs 05/31/20 09/23/24 Unknown Rx aspirin 81 mg tablet,delayed 162 mg PO DAILY 09/13/20 09/23/24 Unknown History release magnesium oxide 400 mg PO DAILY 09/13/2005/19 Unknown History furosemide 20 mg tablet 20 mg PO QAM PRN edema #90 t abs 04/05/21 09/23/24 Unknown Rx nitroglycerin 0.4 mg sublingual 0.4 mg sublingual Q5M PRN Chest 04/05/21 09/23/24 Unknown Rx tablet (Nitrostat) Pain #25 tabs potassium chloride 20 mEq 20 meq PO DAILY PRN Take wit h 04/05/21 09/23/24 Unknown Rx tablet,extended Lasix #90 tabs release(part/cryst) (Klor-Con M) pseudoephedrine HCl 30 mg tablet 30 mg PO BID 06/15/21 09/23/24 Unknown History metoprolol tartrate 25 mg tablet 12.5 mg (1/2 x 25 mg) PO BID #90 05/21/23 09/23/24 Unknown Rx tabs isosorbide mononitrate 30 mg 30 mg PO DAILY #90 tabs 0 05/07/24 09/23/24 Unknown Rx tablet,extended release 24 hr Allergies Allergy/AdvReac Type Severity Reaction Status Date / Time atorvastatin Allergy Unknown unknown Verified 09/23/24 08:17 doxycycline Allergy vomiting, Verified 09/23/24 08:17 abdominal pain hydromorphone (From Dilaudid) Allergy anaphylaxis Verified 09/23/24 08:17 meperidine (From Demerol) Allergy hives, Verified 09/23/24 08:17 itching metoclopramide (From Reglan) Allergy uncontrolled Verified 09/23/24 08:17 tongue movement rosuvastatin Allergy wheezing Verified 09/23/24 08:17 and horsness PFSH Acute 2 PFSH: Medical History Palpitation Thyroid nodule 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 Ramirez Bipolar disorder Chronic obstructive pulmonary disease Coronary artery disease Patient had IN with stent placement in 02/2017 Hypertension Ischemic cardiomyopathy Nondiabetic gastroparesis Hyperlipidemia Surgical History History of vaginal surgery (04/01/18) CO2 laser ablation of VaIN 2. [place] [facility] [place] of vaginal surgery (04/07/19) CO2 laser ablation (extensive) of VaIN 2. [place]. [place] [facility] [place] S/P tubal ligation (04/12/15) Hysteroscopic sterilization with Essure. Performed by Dr. Rex Ramirez [facility] in [place], [place] S/P chest tube placement (09/08/08) Diagnoses: Right primary spontaneous pneumothorax. Performed by Dr. Patel at [facility] in [place], [place] S/P cholecystectomy (~02/2004) S/P dilation and curettage (12/16/01) Treatment of miscarriage in second trimester. Performed by Dr. Rex Ramirez at [facility] and [place], [place] S/P tonsillectomy and adenoidectomy (~1994) Age 15 Family History Grandmother Breast cancer Stroke Mother Heart disease Hypertension Diabetes Hyperlipidemia Thyroid disease Father Hypertension Denies family history of Colon cancer Ovarian cancer Clotting disorder Anesthesia complication Bleeding disorder Uterine cancer Social History Smoking and tobacco/nicotine status: current every day tobacco/nicotine user Female Reproductive History: Para: 2 (0020) Spontaneous abortions: Yes Vitals/I&O/Wt Last Vital Signs Temp 97.5 F L 10/02/24 12:52 Pulse 76 10/02/24 17:02 Resp 16 10/02/24 12:52 BP 127/86 10/02/24 17:02 Pulse Ox 94 10/02/24 15:28 O2 Del Method Room Air 10/02/24 12:52 10/02/24 10/02/24 10/02/24 06:59 14:59 22:59 Intake Total 0 / 0 Balance 0 / 0 Weight last 48 hrs Weight 91.172 kg Physical Exam 2 Narrative: General: No acute distress, AO x3, anxious HEENT: PERRLA, pupils bilaterally equal and reactive Chest: Normal vesicular breath sounds, no added sounds, equal good air entry bilaterally CVS: S1-S2 regular, no murmurs, no tachycardia, no gallops, no rubs Abdomen: Soft, nontender, no organomegaly, bowel sounds present Neuro: No focal deficits, no facial deformity, AO x3, power 5/5 in all limbs Data 10/02/24 14:24 10/02/24 14:24 A&P Assessment and plan 1. Non-ST elevation IN (NSTEMI): Positive delta troponin in 2 hours. Cycle troponin. Check limited echocardiogram, A1c, lipid panel. Aspirin 81 mg daily, continue with metoprolol. Increase dose to 25 mg twice daily. Continue with heparin drip. Cardiology consulted from the ER. Possible plan for angiogram in AM. N.p.o. after midnight. 2. Hypertension: Goal blood pressure less than 140/90 mmHg. Continue with home dose of metoprolol for now. Depending on A1c will plan to add LIZY/ARB or CCB. 3. Ischemic cardiomyopathy: Last echocardiogram from June 16 showed a normal EF with grade 1 diastolic dysfunction. Repeat echocardiogram as above. Plan: Full code Cardiac diet Protonix for PUD prophylaxis Heparin drip will be sufficient for DVT prophylaxis PDMP PDMP Reviewed: Not Reviewed Attestations 2 Medical Necessity Statement*: Admission for more than 2 midnights for management of non-ST elevation IN requiring ACS workup Diagnoses Non-ST elevation IN (NSTEMI) I21.4 Hypertension I10 Ischemic cardiomyopathy I25.5
[2024-10-02] MEDS: heparin drip 25,000 UNIT/500 ML PREMIX 26 UNIT IV (17:13)
[2024-10-02] MEDS: heparin 5,000 unit/mL INJ 1 mL IVP (17:15)
--- NOTE | 2024-10-02 17:23 | USCV_ITS ---
Lisa Fernández Age: 44 Gender: F : 1980 Exam Date: 10/02/2024 19:19 Ordering Phys: Frederic Springer MD Technologist: Teodoro Morales [place] [facility] [place]: nstemi BP: 120 / 84 HR: Rhythm: Sinus Technical Quality: Adequate MEASUREMENTS (Male / Female) Normal Values 2D ECHO LV Diastolic Diameter PLAX 4.3 cm 4.2 - 5.9 / 3.9 - 5.3 cm IVS Diastolic Thickness 0.8 cm 0.6 - 1.0 / 0.6 - 0.9 cm IVS Systolic Thickness 1.0 cm LVPW Diastolic Thickness 1.3 cm 0.6 - 1.0 / 0.6 - 0.9 cm LVPW Systolic Thickness 2.3 cm LVOT Diameter 2.0 cm LV Ejection Fraction 2D Teich 56.3 % LV Ejection Fraction MOD 4C 57.0 % LV Ejection Fraction MOD 2C 54.8 % LV Ejection Fraction 2C AL 54.4 % LA Diameter 3.2 cm RA Systolic Volume 4C AL 21.7 ml RA Systolic Volume 4C MOD 22.3 ml LA Sys Volume AL 14.7 cm cubed LA Sys Volume Index AL 7.1 cm cubed/m squared Aorta at Sinotubular Diameter 2.3 cm IVC Diameter 1.7 cm M-MODE LA Ao Ratio MM 1.2 AV Cusp Separation MM 1.7 cm FINDINGS Left Ventricle Right Ventricle Right Atrium Left Atrium Mitral Valve Aortic Valve Tricuspid Valve Pulmonic Valve Pericardium Aorta IVC CONCLUSIONS Technically limited quality echocardiogram. Limited echo performed to assess LV dysfunction. LV systolic function appears to be grossly mildly reduced with EF 45 to 50%. Significant hypokinesis of apical wall Darron Greenwood MD (Electronically Signed) Final Date: 02 October 2024 21:08 S
[2024-10-02 19:25] LABS: Iron 89 ug/dL (37-145); Thyroid Stimulating Hormone 1.00 uIU/mL (0.27-4.20); Vitamin B12 1209 pg/mL (232-1245)
[2024-10-02 20:09] LABS: Total Iron Binding Capacity 368 mcg/dl; Unsaturated Iron Binding 279 ug/dL (112-347)
[2024-10-02 20:18] LABS: Estmated Average Glucose 120; Hemoglobin A1C 5.8 % (4.0-6.0)
--- NOTE | 2024-10-02 21:13 | PM.CONSULT ---
Providers/Reason For Consult Consulting Physician/Specialty*: Darron Greenwood MD/ Cardiology Reason for Consult*: NSTEMI Requesting Physician: Dr Le Attending Physician: Frederic Springer MD Primary Care Provider: Devon Lynn History of Present Illness History of Present Illness Lisa Fernández is a 44 year old female with past medical history of coronary artery disease with prior LAD stent, hypertension who presented to hospital with back pain and chest discomfort. Chest pain started this morning. At time of my evaluation she is cold and clammy. EKG performed shows T wave inversions in anterior leads which is changed from last EKG. Troponin trended up from baseline of 67 to 870 at 6 hours. Review of Systems Const: Denies: fever(s) or chills Card: Reports: chest pain Resp: Denies: dyspnea GI: Denies: abdominal pain : Denies: dysuria, urinary frequency or urinary urgency Musc: Denies: neck pain or back pain Skin/Breast: Denies: rash Medications/Allergies Home Medications ?Medication ?Instructions ?Recorded ?Confirmed ?Last Taken ?Type alprazolam 0.25 mg tablet 0.25 mg PO BID PRN Anxiety 04/01/19 09/23/24 04/07/19 06:00 History baclofen 20 mg tablet 20 mg PO QID 04/01/19 09/23/24 04/06/19 20:00 History pantoprazole 40 mg tablet,delayed 40 mg PO BID 04/01/19 09/23/24 Unknown History release prochlorperazine maleate 10 mg 10 mg PO ONCE PRN Chest Pain 04/01/19 09/23/24 Unknown History tablet (Compazine) tramadol 50 mg tablet 50 mg PO BID PRN Nausea 04/01/19 09/23/24 Unknown History cyanocobalamin (vitamin B-12) 1,000 mcg PO DAILY 02/11/20 09/23/24 Unknown History 1,000 mcg capsule cholecalciferol (vitamin D3) 1,250 50,000 unit PO .q7days 04/11/20 09/23/24 Unknown History mcg (50,000 unit) capsule clarithromycin 250 mg tablet 250 mg PO DAILY #90 tabs 05/31/20 09/23/24 Unknown Rx aspirin 81 mg tablet,delayed 162 mg PO DAILY 09/13/20 09/23/24 Unknown History release magnesium oxide 400 mg PO DAILY 09/13/20 09/23/24 Unknown History furosemide 20 mg tablet 20 mg PO QAM PRN edema #90 tabs 04/05/21 09/23/24 Unknown Rx nitroglycerin 0.4 mg sublingual 0.4 mg sublingual Q5M PRN Chest 04/05/21 09/23/24 Unknown Rx tablet (Nitrostat) Pain #25 tabs potassium chloride 20 mEq 20 meq PO DAILY PRN Take with 04/05/21 09/23/24 Unknown Rx tablet,extended Lasix #90 tabs release(part/cryst) (Klor-Con M) pseudoephedrine HCl 30 mg tablet 30 mg PO BID 06/15/21 09/23/24 Unknown History metoprolol tartrate 25 mg tablet 12.5 mg (1/2 x 25 mg) PO BID #90 05/21/23 09/23/24 Unknown Rx tabs isosorbide mononitrate 30 mg 30 mg PO DAILY #90 tabs 05/07/24 09/23/24 Unknown Rx tablet,extended release 24 hr Allergies Allergy/AdvReac Type Severity Reaction Status Date / Time atorvastatin Allergy Unknown unknown Verified 09/23/24 08:17 doxycycline Allergy vomiting, Verified 09/23/24 08:17 abdominal pain hydromorphone (From Dilaudid) Allergy anaphylaxis Verified 09/23/24 08:17 meperidine (From Demerol) Allergy hives, Verified 09/23/24 08:17 itching metoclopramide (From Reglan) Allergy uncontrolled Verified 09/23/24 08:17 tongue movement rosuvastatin Allergy wheezing Verified 09/23/24 08:17 and horsness Current Medications Generic Name Dose Route Start Last Admin Trade Name Freq PRN Reason Stop Dose Admin Docusate Sodium 100 mg 10/02/24 18:39 10/02/24 20:22 Docusate Sodium 100 Mg Capsule PO Not Given BID FELIPE Heparin Sodium/Sodium Chloride 25,000 unit in 500 mls @ 0 mls/hr 10/02/24 17:00 10/02/24 17:13 Heparin Drip IV 14.26 unit/kg/hr CONT FELIPE 26 mls/hr Protocol Administration Per Protocol Sodium Chloride 1,000 mls @ 50 mls/hr 10/02/24 18:39 10/02/24 19:48 Sodium Chloride 0.9% IV 50 mls/hr .Q20H FELIPE Administration Metoprolol Tartrate 25 mg 10/02/24 18:39 10/02/24 19:47 Metoprolol Tartrate 25 Mg Tablet PO 25 mg BID FELIPE Administration Pantoprazole Sodium 40 mg 10/02/24 18:39 10/02/24 19:[address] 40 Mg Tablet PO 40 mg BID FELIPE Administration PFSH Acute PFSH: Medical History Palpitation Thyroid nodule 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 Ramirez Bipolar disorder Chronic obstructive pulmonary disease Coronary artery disease Patient had CT with stent placement in 02/2017 Hypertension Ischemic cardiomyopathy Nondiabetic gastroparesis Hyperlipidemia Surgical History History of vaginal surgery (04/01/18) CO2 laser ablation of VaIN 2. Performed by Dr. Ramirez at [facility] [place]. History of vaginal surgery (04/07/19) CO2 laser ablation (extensive) of VaIN 2. Performed by Dr. Ramirez at [facility] [place]. S/P tubal ligation (04/12/15) Hysteroscopic sterilization with Essure. Performed by Dr. Rex Ramirez [facility] in [place], [place] S/P chest tube placement (09/08/08) Diagnoses: Right primary spontaneous pneumothorax. Performed by Dr. Patel at [facility] in [place], [place] S/P cholecystectomy (~02/2004) S/P dilation and curettage (12/16/01) Treatment of miscarriage in second trimester. Performed by Dr. Rex Ramirez at [facility] and [place], [place] S/P tonsillectomy and adenoidectomy (~1994) Age 15 Family History Grandmother Breast cancer Stroke Mother Heart disease Hypertension Diabetes Hyperlipidemia Thyroid disease Father Hypertension Denies family history of Colon cancer Ovarian cancer Clotting disorder Anesthesia complication Bleeding disorder Uterine cancer Social History (Reviewed 10/02/24 @ 21:39 by Connor Bains Smoking and tobacco/nicotine status: current every day tobacco/nicotine user Female Reproductive History: Para: 2 (0020) Spontaneous abortions: Yes Vitals/I&O/Wt Last Vital Signs Temp 98.6 F 10/02/24 18:08 Pulse 102 H 10/02/24 18:40 Resp 16 10/02/24 15:00 BP 150/102 10/02/24 18:40 Pulse Ox 93 10/02/24 20:13 O2 Del Method Room Air 10/02/24 20:13 10/02/24 10/02/24 10/02/24 06:59 14:59 22:59 Intake Total 0 / 0 Balance 0 / 0 Weight last 48 hrs Weight 203 lb 8 oz Weight 201 lb Physical Exam Narrative: GENERAL: Patient is alert, awake and oriented x3. [] NECK: No jugular vein distension. [] HEENT: No cyanosis. No icterus. No pallor. [] HEART: Regular S1 and S2. No murmur, rub or gallop. [] LUNGS: Clear to auscultate bilaterally. [] CENTRAL NERVOUS SYSTEM: Grossly nonfocal. [] EXTREMITIES: Lower extremities with no edema bilaterally. Data 10/02/24 14:24 10/02/24 14:24 A&P Assessment and plan 1. Non-ST elevation CT (NSTEMI): 2. Hypertension: 3. Ischemic cardiomyopathy: 4. Smokin. Hyperlipidemia: Plan: Patient has presented with high risk NSTEMI. At time of my evaluation she is cold and clammy. Says chest pain has improved now. We will proceed with coronary angiogram with possible PCI On aspirin and heparin Echo was of limited quality showing mild LV dysfunction but significant hypokinesis of apical wall. Thank you for involving us with care of this patient. We will continue to follow. Please call with questions. PDMP PDMP Reviewed: Not Reviewed Consult Attestations Medical Necessity Statement: Care expected to cross 2 midnights. Patient has presented with high risk NSTEMI with ongoing symptoms. Coding Level of Care Code Acute Code for [facility] Fwd Diagnoses Non-ST elevation CT (NSTEMI) I21.4 Hypertension I10 Ischemic cardiomyopathy I25.5 Smoking F17.200 Hyperlipidemia E78.5
--- NOTE | 2024-10-02 21:20 | ECG_ITS ---
[email or web address] Test Date: 2024-10-02 Pat Name: Lisa Fernández Department: Room: [facility] Gender: Female Head Paper Tester: : 1980 Requested By: Darron Greenwood Order Number: [id number] Alex MD: Darron Greenwood M.D. Measurements Intervals [place] Rate: 89 P: 73 TN: 143 QRS: -21 QRSD: 105 T: 65 QT: 363 QTc: 443 Interpretive Statements SINUS RHYTHM ANTERIOR MYOCARDIAL INFARCTION , OF INDETERMINATE AGE [40+ ms Q WAVE AND/OR ST/T ABNORMALITY IN V3/V4] Compared to ECG 10/02/2024 16:50:47 Left-axis deviation no longer present Myocardial infarct finding still present Electronically Signed On 10-06-2024 14:59:09 CDT by Darron Greenwood M.D. [email or web address]
[2024-10-02 21:29] LABS: Troponin 5 6HR 876.5 ng/L (0-10)
[2024-10-02 21:30] LABS: Troponin 5 6HR Delta 809.5 ng/L (0-12)
--- NOTE | 2024-10-02 22:25 | W.PM.OPSUD ---
Surgery/Procedure H&P Update DATE OF PROCEDURE: October 02, 2024 DATE H&P PERFORMED: 10/02/24 H&P UPDATE INFORMATION: I have reviewed H&P completed within last 30 days, I have examined patient prior to procedure and No changes to prior documentation PREOP DIAGNOSIS: NSTEMI PRIMARY INDICATION FOR PROCEDURE: NSTEMI PLANNED PROCEDURE: Left heart cath with possible percutaneous coronary intervention PATIENT REASSESSED PRIOR TO SEDATION, WITH NO CHANGE NOTED: Yes PHYSICAL EXAM: alert, oriented x 3, clear to auscultation bilaterally and regular rate & rhythm AIRWAY EVAL/ANESTHESIA PLAN: normal airway, ASA III, Local Anesthesia, Risks, benefits & alternatives of sedation and/or procedure discussed and Patient agrees to continue as planned ADDITIONAL INFORMATION: Moderate sedation
--- NOTE | 2024-10-02 23:10 | PM.PROC ---
Procedure Note: Date of procedure: 10/02/24 Pre-procedure diagnosis: NSTEMI Post-procedure diagnosis: other (Total thrombotic occlusion of mid LAD stent s/p PCI with 1 stent) Procedure: Mid LAD stent has total thrombotic occlusion. Status post successful revascularization with balloon angioplasty and 1 stent placement. Aggrastat for 4 hours. We will load with brilinta 180mg. Continue aspirin Performing Provider: Darron Greenwood Estimated blood loss (mL): 10 Complications: None Condition: stable Disposition: ICU Coding Level of Care Code Acute Code for [facility]
[2024-10-03] VITALS (158 sets, daily range): BP systolic 104–156; BP diastolic 79–116; PULSE 66–105; RESP 13–28; TEMP 36.8–37.1; O2SAT 88–98
[2024-10-03] MEDS: morphine 4 mg/mL SDV 1 mL 2 MG IVP ×3 (02:16→14:07)
[2024-10-03 05:16] LABS: Hematocrit 39.0 % (36-47); Hemoglobin 13.20 g/dL (11.27-16.99); Mean Corpuscular HGB Conc 33.8 g/dL (30-55); Mean Corpuscular Hemoglobin 28.8 pg (27-33); Mean Corpuscular Volume 85.2 fl (85-98); Nucleated Red Blood Cells % 0 %; Platelet Count 225 10^3/cmm (157-399); Red Blood Count 4.58 10^6/uL (3.85-5.65); White Blood Count 11.14 10^3/uL (3.29-11.43)
[2024-10-03 05:36] LABS: Alanine Aminotransferase 18 U/L (0-33); Albumin Level 3.3 g/dL (3.5-5.2); Alkaline Phosphatase 87 U/L (35-105); Anion Gap 15.6 (5-19); Aspartate Amino Transferase 129 U/L (0-32); Blood Urea Nitrogen 7 mg/dL (6-20); Calcium 8.9 mg/dL (8.5-10.5); Carbon Dioxide 24 mmol/L (22-29); Chloride 102 mmol/L (98-107); Creatinine Clr Calc Pharmacy 156.5689; Globulin 2.7 g/dL (1.3-4.6); Glucose 110 mg/dL (65-115); Magnesium 1.7 mg/dL (1.7-2.3); Osmolality Calculated 285 mOsm/kg (285-295); Potassium 3.6 mmol/L (3.5-5.1); Sodium 138 mmol/L (136-145); Total Protein 6.0 g/dL (6.6-8.7)
[2024-10-03 06:18] LABS: Cholesterol 174 mg/dL (0-200); HDL Cholesterol 32 mg/dL (60-100); Triglycerides 183 mg/dL (0-150)
--- NOTE | 2024-10-03 08:24 | PM.PN ---
Subjective Subjective: Patient had PCI of mid LAD with 1 stent yesterday. She had total stent thrombosis. She is doing well. No chest pain. Vitals/I&O/Wt Last Vital Signs Temp 98.6 F 10/02/24 18:08 Pulse 86 10/03/24 06:19 Resp 18 10/03/24 06:19 BP 121/93 10/03/24 06:00 Pulse Ox 94 10/03/24 06:19 O2 Del Method Room Air 10/03/24 06:19 10/02/24 10/03/24 10/03/24 22:59 06:59 14:59 Intake Total 80 / 80 80 / 160 Output Total 200 / 200 Balance 80 / 80 -120 / -40 Weight last 48 hrs Weight 205 lb 0.478 oz Weight 203 lb 8 oz Weight 201 lb Physical Exam Narrative: GENERAL: Patient is alert, awake and oriented x3. [] NECK: No jugular vein distension. [] HEENT: No cyanosis. No icterus. No pallor. [] HEART: Regular S1 and S2. No murmur, rub or gallop. [] LUNGS: Clear to auscultate bilaterally. [] CENTRAL NERVOUS SYSTEM: Grossly nonfocal. [] EXTREMITIES: Lower extremities with no edema bilaterally. Urinary Catheter Management: Singer: Cath Placed During This Visit: yes Reason for Continuing Indwelling Catheter: Accurate Measurement of Urinary Output in Critically Ill Patients Urinary Catheter Date of Insertion: 10/03/24 Urinary Catheter Time of Insertion: 02:44 Data 10/04/24 03:23 10/04/24 03:23 A&P Assessment and plan 1. Non-ST elevation [place] (NSTEMI): 2. Hypertension: 3. Ischemic cardiomyopathy: 4. Smokin. Hyperlipidemia: Plan: Patient was found to have total stent thrombosis of prior LAD stent. Underwent successful revascularization with 1 stent. She is doing well. Continue aspirin and Brilinta. Thank you for involving us with care of this patient. We will continue to follow. Please call with questions. PDMP PDMP Reviewed: Not Reviewed Attestations Medical Necessity Statement*: Care expected to cross 2 midnights. Coding Level of Care Code Acute Code for [facility] Fwd Diagnoses Non-ST elevation [place] (NSTEMI) I21.4 Hypertension I10 Ischemic cardiomyopathy I25.5 Smoking F17.200 Hyperlipidemia E78.5
--- NOTE | 2024-10-03 13:18 | PC.NURSE ---
Groin cath access site soft, bruising noted. Patient is ambulating unit at this time with assistance.
--- NOTE | 2024-10-03 15:26 | P.PN_ITS ---
Subjective 2 Subjective: Underwent PCI overnight for mid LAD stent thrombotic occlusion. Today morning states she does not have any more chest pain but complaining of cold sweats which she attributes to possible withdrawal from her daily marijuana and Xanax use. Does have mild groin hematoma but seems to be resolving. Denies any discomfort. Vitals/I&O/Wt Last Vital Signs Temp 98.3 F 10/03/24 08:00 Pulse 84 10/03/24 13:15 Resp 18 10/03/24 14:07 BP 138/101 10/03/24 13:15 Pulse Ox 96 10/03/24 14:07 O2 Del Method Room Air 10/03/24 13:15 10/03/24 10/03/24 10/03/24 06:59 14:59 22:59 Intake Total 80 / 160 1165.833 / 1165.833 Output Total 200 / 200 250 / 250 Balance -120 / -40 915.833 / 915.833 Weight last 48 hrs Weight 93 kg Weight 92.306 kg Weight 91.172 kg Physical Exam 2 Narrative: General: No acute distress, AO x3, anxious HEENT: PERRLA, pupils bilaterally equal and reactive Chest: Normal vesicular breath sounds, no added sounds, equal good air entry bilaterally CVS: S1-S2 regular, no murmurs, no tachycardia, no gallops, no rubs Abdomen: Soft, nontender, no organomegaly, bowel sounds present Neuro: No focal deficits, no facial deformity, AO x3, power 5/5 in all limbs Urinary Catheter Management: Singer: Cath Placed During This Visit: yes Reason for Continuing Indwelling Catheter: Accurate Measurement of Urinary Output in Critically Ill Patients Urinary Catheter Date of Insertion: 10/03/24 Urinary Catheter Time of Insertion: 02:44 Data 10/03/24 05:06 10/03/24 05:06 A&P Assessment and plan 1. Non-ST elevation [place] (NSTEMI): Post PCI for mid LAD stent thrombotic occlusion. Appreciate cardiology recommendations. Appreciate echocardiogram with EF of 45 to 50% with apical hypokinesia. Appreciate A1c, lipid panel. Continue with aspirin, Brilinta, metoprolol 25 mg twice daily. 2. Primary hypertension: Goal blood pressure less than 140/90 mmHg. Continue with home dose of metoprolol for now. If blood pressure continues to remain elevated can start on low-dose losartan versus Entresto. 3. Ischemic cardiomyopathy: Appreciate echocardiogram with EF of 45 to 50% with apical hypokinesia. Watch for fluid overload. Plan: Full code Cardiac diet Protonix for PUD prophylaxis Heparin for DVT prophylaxis Transfer to [facility]. PDMP PDMP Reviewed: Not Reviewed Attestations 2 Medical Necessity Statement*: Requires further hospitalization for management of non-ST elevation [place] post PCI to LAD Diagnoses Non-ST elevation [place] (NSTEMI) I21.4 Primary hypertension I10 Hypertension type: primary hypertension Ischemic cardiomyopathy I25.5
[2024-10-03] MEDS: heparin 5,000 unit/mL INJ 1 mL 5000 UNIT SUBCUT (16:18)
[2024-10-04] VITALS (51 sets, daily range): BP systolic 113–142; BP diastolic 72–115; PULSE 79–104; RESP 16–27; TEMP 36.7; O2SAT 91–98
[2024-10-04] MEDS: morphine 4 mg/mL SDV 1 mL 2 MG IVP (02:46)
[2024-10-04] MEDS: heparin 5,000 unit/mL INJ 1 mL 5000 UNIT SUBCUT (02:46)
[2024-10-04 04:33] LABS: Hematocrit 44.5 % (36-47); Hemoglobin 14.50 g/dL (11.27-16.99); Mean Corpuscular HGB Conc 32.6 g/dL (30-55); Mean Corpuscular Hemoglobin 28.8 pg (27-33); Mean Corpuscular Volume 88.5 fl (85-98); Nucleated Red Blood Cells % 0 %; Platelet Count 255 10^3/cmm (157-399); Red Blood Count 5.03 10^6/uL (3.85-5.65); White Blood Count 16.81 10^3/uL (3.29-11.43)
[2024-10-04 04:53] LABS: Alanine Aminotransferase 18 U/L (0-33); Albumin Level 4.2 g/dL (3.5-5.2); Alkaline Phosphatase 108 U/L (35-105); Blood Urea Nitrogen 7 mg/dL (6-20); Calcium 9.6 mg/dL (8.5-10.5); Carbon Dioxide 22 mmol/L (22-29); Chloride 101 mmol/L (98-107); Creatinine Clr Calc Pharmacy 131.0039; Globulin 2.8 g/dL (1.3-4.6); Glucose 100 mg/dL (65-115); Magnesium 1.9 mg/dL (1.7-2.3); Osmolality Calculated 290 mOsm/kg (285-295); Sodium 141 mmol/L (136-145); Total Protein 7.0 g/dL (6.6-8.7)
[2024-10-04 04:56] LABS: Anion Gap 21.8 (5-19); Aspartate Amino Transferase 62 U/L (0-32); Potassium 3.8 mmol/L (3.5-5.1)
--- NOTE | 2024-10-04 09:05 | P.DS_ITS ---
Discharge Providers Date of Admission: 10/02/24 17:39 Date of Discharge: October 04, 2024 Attending Provider at Admission: Frederic Springer MD Attending Provider at Discharge: Frederic Springer MD Consults: Cardiology: Dr. Greenwood Primary Care Provider: Devon Lynn Diagnoses at Discharge Discharge Diagnosis 1. Non-ST elevation [place] (NSTEMI): 2. Primary hypertension: 3. Ischemic cardiomyopathy: Reason for Visit Reason for Visit: chest pressure Hospital Course Hospital Course Lisa Fernández is a 44 year old female with past medical history of CAD, post PCI to LAD in 2017, hypertension, hyperlipidemia, bipolar disorder presents to the ER today because of chest pain which woke her up from her sleep today morning at around 10 AM. Patient states she has had a chronic back pain for which she is under evaluation by an orthopedic surgeon but today the pain was retrosternal radiating to bilateral shoulder blades and her back making her nauseous with an episode of vomiting. Patient states for last few weeks she has had daily chest pain in the evening for which she has required sublingual nitros but today the pain was not subsiding even with the nitro. She has had pain on exertion for last 3 to 4 days. In the ER she was found to have a delta troponin and was diagnosed of non-ST elevation [place]. Cardiology was consulted patient was started on heparin drip and medicine team was consulted for further management. Patient was admitted to the hospital further evaluation and management. She underwent cardiac angiogram on 10/02 which showed mid LAD stent in-stent total thrombotic occlusion which was treated with balloon angioplasty and 1 GARFIELD placement. She did develop mild groin hematoma which has remained stable. Patient's hospitalization was otherwise unremarkable. She has been discharged in hemodynamically stable condition with advised to follow-up with primary care team within next 1 week and cardiology team within next 2 weeks. Patient was counseled in detail regarding smoking cessation. She verbalized understanding and would want to try nicotine patch. Physical Exam Narrative: General: No acute distress, AO x3, anxious HEENT: PERRLA, pupils bilaterally equal and reactive Chest: Normal vesicular breath sounds, no added sounds, equal good air entry bilaterally CVS: S1-S2 regular, no murmurs, no tachycardia, no gallops, no rubs Abdomen: Soft, nontender, no organomegaly, bowel sounds present Neuro: No focal deficits, no facial deformity, AO x3, power 5/5 in all limbs Urinary Catheter Management: Singer: Cath Placed During This Visit: yes Reason for Continuing Indwelling Catheter: Accurate Measurement of Urinary Output in Critically Ill Patients Urinary Catheter Date of Insertion: 10/03/24 Urinary Catheter Time of Insertion: 02:44 Discharge Data Studies Completed and Pending Completed Studies During Hospitalization Category Date Time Status XR chest 1V portable [id number] Stat Exams 10/02/24 14:03 Completed CV. echo limited [id number] Stat Ultrasound 10/02/24 17:23 Completed Pending at discharge Category Date Time Status [facility] request for service Routine Exams 10/02/24 21:58 Ordered Complete Blood Count w/Auto AM LABS Lab 10/05/24 04:00 Ordered Comprehensive Metabolic Panel AM LABS Lab 10/05/24 04:00 Ordered Magnesium AM LABS Lab 10/05/24 04:00 Ordered Phosphorus AM LABS Lab 10/05/24 04:00 Ordered Radiology Impressions Chest X-Ray 10/02/24 14:03 IMPRESSION: 1. Negative chest. Laboratory Results WBC 16.81 10^3/uL (3.29-11.43) H 10/04/24 03:23 RBC 5.03 10^6/uL (3.85-5.65) 10/04/24 03:23 Hgb 14.50 g/dL (11.27-16.99) 10/04/24 03:23 Hct 44.5 % (36-47) 10/04/24 03:23 MCV 88.5 fl (85-98) 10/04/24 03:23 MCH 28.8 pg (27-33) 10/04/24 03:23 MCHC 32.6 g/dL (30-55) 10/04/24 03:23 RDW 14.6 % (12.1-15.1) 10/04/24 03:23 Plt Count 255 10^3/cmm (157-399) 10/04/24 03:23 MPV 10.2 fL (7.4-10.4) 10/04/24 03:23 Neut % (Auto) 74.7 % 10/04/24 03:23 Lymph % (Auto) 14.7 % 10/04/24 03:23 [place] % (Auto) 9.7 % 10/04/24 03:23 Eos % (Auto) 0.2 % 10/04/24 03:23 Baso % (Auto) 0.3 % 10/04/24 03:23 Neut # (Auto) 12.56 10^3/uL (1.8-7.7) H 10/04/24 03:23 Lymph # (Auto) 2.5 10^3/uL (0.8-4.8) 10/04/24 03:23 [place] # (Auto) 1.6 10^3/uL (0.2-0.9) H 10/04/24 03:23 Eos # (Auto) 0.0 10^3/uL (0.0-0.8) 10/04/24 03:23 Baso # (Auto) 0.1 10^3/uL (0.0-0.1) 10/04/24 03:23 Nucleated RBC % (auto) 0 % 10/04/24 03:23 Nucleated RBCs # 0.0 /100WBC 10/04/24 03:23 Sodium 141 mmol/L (136-145) 10/04/24 03:23 Potassium 3.8 mmol/L (3.5-5.1) 10/04/24 03:23 Chloride 101 mmol/L (98-107) 10/04/24 03:23 Carbon Dioxide 22 mmol/L (22-29) 10/04/24 03:23 Anion Gap 21.8 (5-19) H 10/04/24 03:23 BUN 7 mg/dL (6-20) 10/04/24 03:23 Creatinine 0.6 mg/dL (0.5-0.9) 10/04/24 03:23 GFR Calculation 109.1 mL/min (90-130) 10/04/24 03:23 Glucose 100 mg/dL (65-115) 10/04/24 03:23 Estimat Average Glucose 120 10/02/24 14:24 Hemoglobin A1c 5.8 % (4.0-6.0) 10/02/24 14:24 Calculated Osmolality 290 mOsm/kg (285-295) 10/04/24 03:23 Calcium 9.6 mg/dL (8.5-10.5) 10/04/24 03:23 Phosphorus 2.3 mg/dL (2.5-4.5) L 10/04/24 03:23 Magnesium 1.9 mg/dL (1.7-2.3) 10/04/24 03:23 Iron 89 ug/dL (37-145) 10/02/24 14:24 TIBC 368 mcg/dl 10/02/24 14:24 % Saturation 24.1 % (20-50) 10/02/24 14:24 Unsat Iron Binding 279 ug/dL (112-347) 10/02/24 14:24 Total Bilirubin 0.8 mg/dL (0.15-1.2) 10/04/24 03:23 AST 62 U/L (0-32) H 10/04/24 03:23 ALT 18 U/L (0-33) 10/04/24 03:23 Alkaline Phosphatase 108 U/L (35-105) H 10/04/24 03:23 Troponin T Baseline 67 ng/L (0-10) H 10/02/24 14:24 Troponin T 120 Minute 284.4 ng/L (0-10) H 10/02/24 16:12 Delta Troponin T 217.4 ABS# (0-10) H* 10/02/24 16:12 Troponin T Hi Sens 6Hr 876.5 ng/L (0-10) H 10/02/24 20:35 Troponin T Hi Sens 6Hr Delta 809.5 ng/L (0-12) H* 10/02/24 20:35 Total Protein 7.0 g/dL (6.6-8.7) 10/04/24 03:23 Albumin 4.2 g/dL (3.5-5.2) 10/04/24 03:23 Globulin 2.8 g/dL (1.3-4.6) 10/04/24 03:23 Triglycerides 183 mg/dL (0-150) H 10/03/24 05:06 Cholesterol 174 mg/dL (0-200) 10/03/24 05:06 LDL Cholesterol, Calc 105 mg/dL (50-129) 10/03/24 05:06 HDL Cholesterol 32 mg/dL (60-100) L 10/03/24 05:06 LDL/HDL Ratio 3.28 RATIO (0.00-3.22) H 10/03/24 05:06 Cholesterol/HDL Ratio 5.44 mg/dL (0.0-4.40) H 10/03/24 05:06 Vitamin B12 1209 pg/mL (232-1245) 10/02/24 14:24 Folate 2.1 ng/mL (4.8-37.3) L 10/03/24 05:06 TSH 1.00 uIU/mL (0.27-4.20) 10/02/24 14:24 Ser , Semi-Qnt < 1.00 mIU/mL 10/02/24 20:35 Procedures Performed Date of procedure: 10/02/24 Pre-procedure diagnosis: NSTEMI Post-procedure diagnosis: other (Total thrombotic occlusion of mid LAD stent s/p PCI with 1 stent) Procedure: Mid LAD stent has total thrombotic occlusion. Status post successful revascularization with balloon angioplasty and 1 stent placement. Aggrastat for 4 hours. We will load with brilinta 180mg. Continue aspirin Performing Provider: Darron Greenwood Estimated blood loss (mL): 10 Complications: None Vitals Last Vital Signs Temp 98.0 F 10/04/24 07:42 Pulse 97 10/04/24 06:00 Resp 20 H 10/04/24 04:00 BP 138/115 10/04/24 08:00 Pulse Ox 91 10/04/24 04:00 O2 Del Method Room Air 10/03/24 16:20 Discharge Plan Discharge Patient Disposition: Home Condition: Stable Prescriptions: New ticagrelor [Brilinta] 90 mg Tablet 90 mg PO BID Qty: 60 0RF losartan 25 mg tablet 25 mg PO DAILY Qty: 30 0RF nicotine 21 mg/24 hr Patch 24 Hour 1 patch transdermal DAILY Qty: 28 0RF Continued pantoprazole 40 mg tablet,delayed release (DR/EC) 40 mg PO BID baclofen 20 mg tablet 20 mg PO QID alprazolam 0.25 mg tablet 0.25 mg PO BID PRN (Reason: Anxiety) prochlorperazine maleate [Compazine] 10 mg tablet 10 mg PO DAILY PRN (Reason: Nausea) tramadol 50 mg tablet 50 mg PO BID PRN (Reason: Pain) cholecalciferol (vitamin D3) 1,250 mcg (50,000 unit) capsule 50,000 unit PO .q7days Rx Instructions: Mondays cyanocobalamin (vitamin B-12) 1,000 mcg capsule 1,000 mcg PO DAILY magnesium oxide 400 mg magnesium capsule 400 mg PO DAILY furosemide 20 mg tablet 20 mg PO QAM PRN (Reason: edema) Qty: 90 3RF nitroglycerin [Nitrostat] 0.4 mg tablet, sublingual 0.4 mg SUBLINGUAL Q5M PRN (Reason: Chest Pain) Qty: 25 3RF pseudoephedrine HCl 30 mg tablet 30 mg PO BID hydrocodone-acetaminophen 5-325 mg tablet 1 tab PO BID PRN (Reason: Moderate Pain (Scale Score 5-6)) naloxone [Narcan] 4 mg/actuation spray,non-aerosol See Rx Instructions .ROUTE .COMPLEX Rx Instructions: USE 1 SPRAY (4MG) IN ONE NOSTRIL (ALTERNATE NOSTRIL WITH EACH DOSE) ONE TIME NEEDED FOR RESPIRATION (SLOWED WITH OPIOID USE) PUSH PLUNGER TO ADMINISTER CALL 911. MAY REPEAT EVERY 2-3 MINUTES, IF THE PERSON DOES NOT WAKE UP OR BREATHING IS NOT IMPROVED. clarithromycin 250 mg tablet 250 mg PO DAILY potassium chloride [Klor-Con M20] 20 mEq tablet,ER particles/crystals 20 meq PO QPM PRN (Reason: Take with Lasix) Changed aspirin 81 mg tablet,delayed release (DR/EC) 81 mg PO DAILY Qty: 10 0RF metoprolol tartrate 25 mg tablet 25 mg PO BID Qty: 90 0RF Discharge Order = DC NOW: Discharge Order (Routine); Ordered 10/04/24 Ordered By: Frederic Springer Referrals: Devon Lynn [Primary Care Provider, Family Practice] Elena Herring FNP [Nurse Practitioner, Cardiology] Referral Note: 5 to 7 days the office will call you Discharge Diet: Cardiac Discharge Activity: Resume usual activity and Increase activity as tolerated Patient Instructions: Nicotine (Absorbed through the skin), Losartan (By mouth), Ticagrelor (By mouth), Heart Attack (GEN), Coronary Angioplasty (DC), How to Stop Smoking (DC), Heart Healthy Diet (DC), Opioid Safety, Pain Management, Patient Portal & Susan Instructions Activity Restrictions/Additional Instructions: Please continue taking aspirin and Brilinta. Check your blood pressure daily at home maintain blood pressure diary. Goal blood pressure less than 140/90 mmHg. Dose of metoprolol has been increased to 25 mg twice daily. Losartan hide nightly medication list. Follow-up with cardiology team within next 2 weeks. Discharge Attestations Time Spent in Discharge Care*: greater than 30 min Specific Discharge Activities: educating patient, educating and/or supporting family/caregiver, discussing with pcp/other providers, discussing with counter caser/social workers/dc planners, documenting/other paperwork and evaluating patient/reviewing data Time Spent in Smoking Cessation: more than 10 minutes Status at Discharge: Cognitive status at discharge: cognitively intact , Behavioral status at discharge: cooperative , Functional status at discharge: independent ambulation , Overall status at discharge: patient is back to baseline Quality Metrics Clinical Quality Measures [ No reported AMI, CVA or VTE this stay] Coding Level of Care Code 35517 Total time (in minutes) for Discharge: 65 Diagnoses Non-ST elevation [place] (NSTEMI) I21.4 Primary hypertension I10 Hypertension type: primary hypertension Ischemic cardiomyopathy I25.5
--- NOTE | 2024-10-04 09:50 | PM.PN ---
Subjective Subjective: Patient doing well. No chest pain. Vitals/I&O/Wt Last Vital Signs Temp 98.0 F 10/04/24 07:42 Pulse 97 10/04/24 06:00 Resp 20 H 10/04/24 04:00 BP 140/92 10/04/24 09:14 Pulse Ox 95 10/04/24 09:14 O2 Del Method Room Air 10/04/24 09:14 10/03/24 10/04/24 10/04/24 22:59 06:59 14:59 Intake Total 760 / 1925.833 180 / 2105.833 200 / 200 Balance 760 / 1675.833 180 / 1855.833 200 / 200 Weight last 48 hrs Weight 200 lb 9.93 oz Weight 205 lb 0.478 oz Weight 203 lb 8 oz Weight 201 lb Physical Exam Narrative: GENERAL: Patient is alert, awake and oriented x3. [] NECK: No jugular vein distension. [] HEENT: No cyanosis. No icterus. No pallor. [] HEART: Regular S1 and S2. No murmur, rub or gallop. [] LUNGS: Clear to auscultate bilaterally. [] CENTRAL NERVOUS SYSTEM: Grossly nonfocal. [] EXTREMITIES: Lower extremities with no edema bilaterally. Urinary Catheter Management: Singer: Cath Placed During This Visit: yes Reason for Continuing Indwelling Catheter: Accurate Measurement of Urinary Output in Critically Ill Patients Urinary Catheter Date of Insertion: 10/03/24 Urinary Catheter Time of Insertion: 02:44 Data 10/04/24 03:23 10/04/24 03:23 A&P Assessment and plan 1. Non-ST elevation [place] (NSTEMI): 2. Hypertension: 3. Ischemic cardiomyopathy: 4. Smokin. Hyperlipidemia: Plan: Patient doing well. Stable to be discharged from cardiology standpoint on aspirin and Brilinta. Outpatient cardiology follow-up in 1 week PDMP PDMP Reviewed: Not Reviewed Attestations Medical Necessity Statement*: Care expected to cross 2 midnights. Coding Level of Care Code Acute Code for [facility] Diagnoses Non-ST elevation [place] (NSTEMI) I21.4 Hypertension I10 Ischemic cardiomyopathy I25.5 Smoking F17.200 Hyperlipidemia E78.5
--- NOTE | 2024-10-04 11:11 | PC.NURSE ---
Extensive education provided to patient and her at bedside, written discharge information also provided with cardiac stoplight and blood pressure parameters. Patient and educated on at home care of Cath site. S/S to call 911 or return to ER. Medications called to [facility] [place]. Patient is to pick them up on her way home. Follow up appointment with Elena Herring highlighted on discharge papers and patient educated to call if cardiology is not in touch with her by Saturday.
--- NOTE | 2024-10-04 11:44 | PC.NURSE ---
Pharmacist from [facility] called regarding clarithromycin and Brilinta interaction. Dr. Springer's phone number provided to pharmacist.
== END 2024-10-04 11:18 | disposition home or self-care (01) | DRG 321 ==
LOC: ER 16:54 → ICU 17:40
PROVIDERS: Emergency Medicine; Internal Medicine; Admitting Provider Student in an Organized Health Care Education/Training Program; Emergency Provider Family Medicine; PCP Family Medicine; Visit Provider Student in an Organized Health Care Education/Training Program
PROC: 027034Z Dilation of Coronary Artery, One Artery with Drug-eluting Intraluminal Device, Percutaneous Approach (ICD-10-PCS; principal; 2024-10-02 22:30)
PROC: 027034Z Dilation of Coronary Artery, One Artery with Drug-eluting Intraluminal Device, Percutaneous Approach (ICD-10-PCS; 2024-10-02 22:30)
DX: I97.190 Other postprocedural cardiac functional disturbances following cardiac surgery (principal); I21.A9 Other myocardial infarction type; I97.630 Postprocedural hematoma of a circulatory system organ or structure following a cardiac catheterization; T82.867A Thrombosis due to cardiac prosthetic devices, implants and grafts, initial encounter; Y71.8 Miscellaneous cardiovascular devices associated with adverse incidents, not elsewhere classified; I10 Essential (primary) hypertension; I25.5 Ischemic cardiomyopathy; E78.5 Hyperlipidemia, unspecified; I25.10 Atherosclerotic heart disease of native coronary artery without angina pectoris; F31.9 Bipolar disorder, unspecified; Z79.82 Long term (current) use of aspirin
CPT/HCPCS: 36415; 51702; 71045; 80053; 80061; 82607; 82746; 83036; 83540; 83550; 83735; 84100; 84443; 84484; 84702; 85025; 85347; 93005; 93308; 93454; 94664; 96365; 96372; 96374; 96375; 96376; 99152; 99153; 99285; C1725; C1760; C1769; C1874; C1887; C1894; C9600; G0269; J0780; J1200; J1644; J2250; J2270; J3010; J3490; J7030; J9999; Q9967

== ENCOUNTER 2024-10-16 16:30 | Outpatient (CLI) | payer BC, MEDICAID, SELFPAY ==
--- NOTE | 2024-10-16 16:45 | USR_ITS ---
PROCEDURE INFORMATION: Exam: US Duplex Right Lower Extremity Arteries Or Arterial Bypass Grafts Exam date and time: 10/16/2024 4:47 PM Age: 44 years old Clinical indication: Screening exam; R/O pseudo; Prior surgery; Surgery date: <1 month; Surgery type: Post cath status two weeks ago today; Additional info: Rule out pseudoaneurysm TECHNIQUE: Imaging protocol: Right Real-time duplex scan of the arteries or arterial bypass grafts of the right lower extremity with 2-D taylor scale, color Doppler flow and spectral waveform analysis. Images documented and saved. COMPARISON: No relevant prior studies available. FINDINGS: Right external iliac artery: No occlusion or significant stenosis. Normal waveform. Peak velocity 103 cm/s. Right common femoral artery: Peak velocity 103 cm/s. No occlusion or significant stenosis. Normal waveform. No pseudoaneurysm. Right profunda femoris artery: Normal waveform. Peak velocity 58 cm/s. No occlusion or significant stenosis. Normal waveform. Right superficial femoral artery: Peak velocity 86 cm/s. No occlusion or significant stenosis. Normal waveform. Right popliteal artery: Not evaluated. Right calf/foot arteries: Right posterior tibial artery: Normal waveform. Peak velocity 50 cm/s. Soft tissues: Unremarkable. US/[place] [id number] IMPRESSION: No pseudoaneurysm. No arterial stenosis or occlusion.
== END 2024-10-16 16:31 | disposition home or self-care (01) ==
LOC: RAD 16:33
PROVIDERS: PCP Family Medicine; Visit Provider Nurse Practitioner Family
DX: I21.4 Non-ST elevation (NSTEMI) myocardial infarction (principal); Z95.5 Presence of coronary angioplasty implant and graft
CPT/HCPCS: 93926